=== PATIENT | female | born 1940 | race Caucasian/White ===

== ENCOUNTER 2019-07-22 17:05 | Observation (INO) | payer MEDICARE, OTHER, SELFPAY ==
[2019-07-22] VITALS (8 sets, daily range): BP systolic 154–170; BP diastolic 68–104; PULSE 69–80; RESP 15–21; TEMP 36.7–37; O2SAT 93–97; BMI 31.5
--- NOTE | 2019-07-22 17:18 | ED_ITS ---
Entered by Elle Rahman, acting as scribe for Emmanuel Villalta DO Documented by User: Emmanuel Villalta DO 07/26/19 07:03 HPI - Neuro Symptoms/Deficit General: Chief Complaint: Neuro Symptoms/Deficit Stated Complaint: stroke s/s Time Seen by Provider: 07/22/19 17:19 Source: patient and family Mode of arrival: wheelchair Limitations: no limitations History of Present Illness: HPI Narrative: 78 yo f came to the er with family for stoke like symptoms, onset was 1 hour ago. Family states that she has ms in her rt leg and that stays numb. Family states that pt was leaning to the right when she got there. Pt also was trying to eat and the food was coming out the right side of her mouth. Family reports a history of MS. by the time pt arrived in exam room symptoms have completely resolved. Onset (ago): hour(s) (1 hour ago) Time: 17:20 Last Observed Normal: 16:19 Timing confirmed by: family member Location: speech and right face Associated symptoms: Deny chest pain, headache(s), malaise, nausea, syncope, vertigo or vomiting Review of Systems Const: Reports: fatigue; Denies: fever, chills or malaise Eyes: Denies: change in vision or blurry vision ENMT: Denies: throat pain, oral sores/lesions, dental pain, nasal discharge or nasal congestion Card: Denies: chest pain or syncope Resp: Denies: shortness of breath, productive cough, non-productive cough or wheezing GI: Denies: nausea or vomiting : Denies: flank pain, painful urination, urinary frequency, urinary urgency, urinary incontinence or blood in urine Musc: Denies: neck pain, back pain, extremity pain, extremity swelling, joint pain or joint swelling Skin/Breast: Denies: rash, itching or redness Neuro: Reports: weakness in extremities, lack of coordination and difficulty walking; Denies: headache or vertigo Psych: Denies: anxiety, depression, loss of interest, visual hallucinations, auditory hallucinations, suicidal ideation or homicidal ideation Endo: Denies: excessive urination, excessive thirst, tired all the time or cold intolerance Alex/Lymph: Denies: easy bruising, easy bleeding, petechiae, enlarged lymph nodes or tender lymph nodes PFSH ED PFSH: Statuses (acute, chronic, etc) shown below reflect problem list status as previously entered and may not be historically accurate Medical History (Updated 07/24/19 @ 00:00 by ) Congestive heart failure (Acute) Coronary artery disease (Resolved) CABG x3 and 2006. No history of [place] with this. Diabetes mellitus type 2 in nonobese (Resolved) Hyperlipidemia (Resolved) Hypertension (Resolved) Hypothyroidism (acquired) (Resolved) Multiple sclerosis (Acute) Diagnosed since 1988. No treatment. Has chronic right leg numbness Social History (Updated 07/23/19 @ 06:49 by Hector Eller MD) Smoking and tobacco status: never smoked Alcohol intake: never Physical Exam Const: COMMON NORMALS: average body habitus, oriented x3 and alert GENERAL APPEARANCE: cooperative, comfortable, well kempt and well developed NUTRITIONAL APPEARANCE: obese ORIENTATION/CONSCIOUSNESS: Yes awake, Yes oriented to person and Yes oriented to place HENMT: COMMON NORMALS: normocephalic, head/scalp atraumatic, EAC's normal, TM's normal bilaterally, external nose normal, moist oral mucous membranes and oropharynx normal HEAD & SCALP: normocephalic and atraumatic NOSE: external nose normal EXTERNAL AUDITORY CANAL: EAC's normal TYMPANIC MEMBRANE: TM's normal bilaterally MOUTH: oral and palatal mucosa normal, lip normal and tongue normal THROAT: posterior oropharynx normal and tonsils normal Eye: COMMON NORMALS: PERRL, EOMs intact bilaterally, conjunctivae normal and no scleral icterus CONJUNCTIVA: Yes conjunctivae normal PUPIL: Yes PERRL Neck/C-Spine: COMMON NORMALS: full ROM, no lymphadenopathy, supple, no meningeal signs and thyroid normal THYROID: thyroid normal and asymmetrical Lymph: LYMPHATIC: no lymphadenopathy noted Resp: COMMON NORMALS: normal respiratory effort, no retractions, no use of accessory muscles and clear to auscultation bilaterally AUSCULTATION: clear to auscultation bilaterally Cardio: COMMON NORMALS: regular rate and regular rhythm RATE: regular rate RHYTHM: regular rhythm HEART SOUNDS: no murmurs GI: COMMON NORMALS: normal to inspection, nondistended, normoactive bowel sounds, soft to palpation and no hepatosplenomegaly PALPATION: Yes soft and Yes no hepatosplenomegaly : COMMON NORMALS: Yes no CVA tenderness BLADDER/KIDNEY EXAM: Yes no CVA tenderness Back/Pelvis: COMMON NORMALS: no CVA tenderness LUMBAR SPINE/LOWER BACK: Yes normal to inspection Extremity: COMMON NORMALS: no clubbing, cyanosis or edema, no calf tenderness and no pedal edema RIGHT UPPER EXTREMITY: Yes wrist (pt has brace on related to prev injury (fall)) Neuro: COMMON NORMALS: oriented x3 SENSORIUM/ORIENTATION: Yes alert, Yes oriented to person and Yes oriented to place MENINGEAL SIGNS: Yes no meningeal signs Psych: APPEARANCE: Yes well kempt Skin: COMMON NORMALS: no rashes or lesions noted and skin turgor normal GENERAL SKIN EXAM: no rashes or lesions noted and turgor normal Course ED course: inital care, orders and exam. NIH is 0. PT has hx of MS. Family description of events sounds like she did have a significnat TIA. [place] [facility] [place] Signs: Vital signs: Vital Signs Temperature 97.9 F 07/23/19 13:42 Pulse Rate 79 07/23/19 12:00 Respiratory Rate 16 07/23/19 13:42 Blood Pressure 167/81 07/23/19 12:00 Pulse Oximetry 95 07/23/19 13:42 MDM - Neuro Symptoms/Deficit Lab Data: Labs: Lab Results 07/22/19 07/22/19 07/22/19 Range/Units 17:59 18:05 18:05 WBC 10.5 H (4.0-10.0) 10^3/ uL RBC 4.64 (4.1-5.3) 10^6/u L Hgb 13.6 (11.5-15.3) g/dL Hct 42.2 (37.0-47.0) % MCV 90.9 (81-99) fL MCH 29.3 (28.0-34.0) pg MCHC 32.2 (30.0-36.0) g/dL RDW 12.8 (12.1-15.1) % Plt Count 281 (130-400) 10^3/c mm MPV 10.5 H (7.4-10.4) fL Neut % (Auto) 53.7 % Lymph % (Auto) 35.3 % Erath % (Auto) 7.7 % Eos % (Auto) 2.2 % Baso % (Auto) 0.8 % Neut # (Auto) 5.7 (1.8-7.7) 10^3/u L Lymph # (Auto) 3.7 (0.8-4.8) 10^3/u L Erath # (Auto) 0.8 (0.2-0.9) 10^3/u L Eos # (Auto) 0.2 (0.0-0.8) 10^3/u L Baso # (Auto) 0.1 (0.0-0.1) 10^3/u L Nucleated RBC % (a uto) 0 % Nucleated RBCs # 0.0 /100WBC PT 13.80 H (10.5-13.3) SECO NDS INR 1.03 (0.8-1.2) APTT 30.8 (23.9-36.7) SECO NDS Sodium (136-145) mmol/L Potassium (3.5-5.1) mmol/L Chloride (98-107) mmol/L Carbon Dioxide (22-29) mmol/L Anion Gap (5-19) BUN (8-23) mg/dL Creatinine (0.5-0.9) mg/dL Glucose (74-106) mg/dL POC Glucose 88 (70-110) mg/dL Calcium (8.8-10.2) mg/Dl Total Bilirubin (0.15-1.2) mg/dL AST (0-32) U/L ALT (0-33) U/L Alkaline Phosphata se (35-105) IU/L Total Protein (6.6-8.7) g/dL Albumin (3.5-5.2) g/dL Globulin (1.3-4.6) g/dL Lipase (13-60) U/L Urine Color (Yellow) Urine Appearance (CLEAR) Urine pH (5-7) Ur Specific Gravit y (1.005-1.030) Urine Protein (Negative) Urine Glucose (UA) (Normal) Urine Ketones (Negative) Urine Occult Blood (Negative) Urine Nitrate (Negative) Urine Bilirubin (NEGATIVE) Urine Urobilinogen (Negative) mg/dL Ur Leukocyte Kassi ase (Negative) Urine Opiates Scre en (Negative) ng/mL Ur Barbiturates Sc reen (Negative) ng/mL Ur Phencyclidine S crn (Negative) ng/mL Ur Amphetamines Sc reen (Negative) ng/mL U Benzodiazepines Scrn (Negative) ng/mL Urine Cocaine Scre en (Negative) ng/mL U Marijuana (THC) Screen (Negative) ng/mL 07/22/19 07/22/19 07/22/19 Range/Units 18:05 18:05 18:44 WBC (4.0-10.0) 10^3/ uL RBC (4.1-5.3) 10^6/u L Hgb (11.5-15.3) g/dL Hct (37.0-47.0) % MCV (81-99) fL MCH (28.0-34.0) pg MCHC (30.0-36.0) g/dL RDW (12.1-15.1) % Plt Count (130-400) 10^3/c mm MPV (7.4-10.4) fL Neut % (Auto) % Lymph % (Auto) % Erath % (Auto) % Eos % (Auto) % Baso % (Auto) % Neut # (Auto) (1.8-7.7) 10^3/u L Lymph # (Auto) (0.8-4.8) 10^3/u L Erath # (Auto) (0.2-0.9) 10^3/u L Eos # (Auto) (0.0-0.8) 10^3/u L Baso # (Auto) (0.0-0.1) 10^3/u L Nucleated RBC % (a uto) % Nucleated RBCs # /100WBC PT (10.5-13.3) SECO NDS INR (0.8-1.2) APTT (23.9-36.7) SECO NDS Sodium 140 (136-145) mmol/L Potassium 3.6 (3.5-5.1) mmol/L Chloride 103 (98-107) mmol/L Carbon Dioxide 22 (22-29) mmol/L Anion Gap 18.6 (5-19) BUN 18 (8-23) mg/dL Creatinine 1.0 H (0.5-0.9) mg/dL Glucose 93 (74-106) mg/dL POC Glucose (70-110) mg/dL Calcium 9.9 (8.8-10.2) mg/Dl Total Bilirubin 0.3 (0.15-1.2) mg/dL AST 21 (0-32) U/L ALT 15 (0-33) U/L Alkaline Phosphata se 87 (35-105) IU/L Total Protein 7.0 (6.6-8.7) g/dL Albumin 4.0 (3.5-5.2) g/dL Globulin 3.0 (1.3-4.6) g/dL Lipase 24 (13-60) U/L Urine Color Yellow (Yellow) Urine Appearance Clear (CLEAR) Urine pH 5 (5-7) Ur Specific Gravit y 1.010 (1.005-1.030) Urine Protein Neg (Negative) Urine Glucose (UA) Norm (Normal) Urine Ketones Negative (Negative) Urine Occult Blood Neg (Negative) Urine Nitrate Negative (Negative) Urine Bilirubin Neg (NEGATIVE) Urine Urobilinogen Norm (Negative) mg/dL Ur Leukocyte Kassi ase Negative (Negative) Urine Opiates Scre en (Negative) ng/mL Ur Barbiturates Sc reen (Negative) ng/mL Ur Phencyclidine S crn (Negative) ng/mL Ur Amphetamines Sc reen (Negative) ng/mL U Benzodiazepines Scrn (Negative) ng/mL Urine Cocaine Scre en (Negative) ng/mL U Marijuana (THC) Screen (Negative) ng/mL 07/22/19 Range/Units 18:44 WBC (4.0-10.0) 10^3/ uL RBC (4.1-5.3) 10^6/u L Hgb (11.5-15.3) g/dL Hct (37.0-47.0) % MCV (81-99) fL MCH (28.0-34.0) pg MCHC (30.0-36.0) g/dL RDW (12.1-15.1) % Plt Count (130-400) 10^3/c mm MPV (7.4-10.4) fL Neut % (Auto) % Lymph % (Auto) % Erath % (Auto) % Eos % (Auto) % Baso % (Auto) % Neut # (Auto) (1.8-7.7) 10^3/u L Lymph # (Auto) (0.8-4.8) 10^3/u L Erath # (Auto) (0.2-0.9) 10^3/u L Eos # (Auto) (0.0-0.8) 10^3/u L Baso # (Auto) (0.0-0.1) 10^3/u L Nucleated RBC % (a uto) % Nucleated RBCs # /100WBC PT (10.5-13.3) SECO NDS INR (0.8-1.2) APTT (23.9-36.7) SECO NDS Sodium (136-145) mmol/L Potassium (3.5-5.1) mmol/L Chloride (98-107) mmol/L Carbon Dioxide (22-29) mmol/L Anion Gap (5-19) BUN (8-23) mg/dL Creatinine (0.5-0.9) mg/dL Glucose (74-106) mg/dL POC Glucose (70-110) mg/dL Calcium (8.8-10.2) mg/Dl Total Bilirubin (0.15-1.2) mg/dL AST (0-32) U/L ALT (0-33) U/L Alkaline Phosphata se (35-105) IU/L Total Protein (6.6-8.7) g/dL Albumin (3.5-5.2) g/dL Globulin (1.3-4.6) g/dL Lipase (13-60) U/L Urine Color (Yellow) Urine Appearance (CLEAR) Urine pH (5-7) Ur Specific Gravit y (1.005-1.030) Urine Protein (Negative) Urine Glucose (UA) (Normal) Urine Ketones (Negative) Urine Occult Blood (Negative) Urine Nitrate (Negative) Urine Bilirubin (NEGATIVE) Urine Urobilinogen (Negative) mg/dL Ur Leukocyte Kassi ase (Negative) Urine Opiates Scre en Negative (Negative) ng/mL Ur Barbiturates Sc reen Negative (Negative) ng/mL Ur Phencyclidine S crn Negative (Negative) ng/mL Ur Amphetamines Sc reen Negative (Negative) ng/mL U Benzodiazepines Scrn Negative (Negative) ng/mL Urine Cocaine Scre en Negative (Negative) ng/mL U Marijuana (THC) Screen Negative (Negative) ng/mL Discharge Plan Discharge Patient Disposition: Admitted As Inpatient Admit Provider: Hector Eller Clinical Impression: Transient cerebral ischemia Condition: Stable Discharge Orders: Discharge Order (Routine); Ordered 07/23/19 Ordered By: Hector Eller Referrals: Hector Eller MD [Primary Care Provider] - 4-7 days (11:40 am Friday) Patient Instructions: Type 2 Diabetes, Atorvastatin (By mouth), Clopidogrel (By mouth), Hypertension, Hypothyroidism (DC), Hyperlipidemia (DC) Additional Instructions: -Continue all of your home medications the same. We are going to add Plavix 75 mg once a day to your regimen. We are also changing your simvastatin to a atorvastatin. -Call if you have any strokelike symptoms. Follow-up with Dr. 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, pt has brace on for other recent injury (fall)) Motor Arm Left - 5: No Drift Motor Leg Right - 6: No Drift Motor Leg Left - 6: No Drift Limb Ataxia - 7: Absent Sensory - 8: Normal Best Language - 9: No Aphasia Dysarthia - 10: Normal Extinction And Inattention - 11: 0 Score Total Score: 0 Documented by User: Ana Sánchez MD 07/22/19 20:44 HPI - Neuro Symptoms/Deficit General: Chief Complaint: Neuro Symptoms/Deficit Stated Complaint: stroke s/s Time Seen by Provider: 07/22/19 17:19 PFSH ED PFSH: Statuses (acute, chronic, etc) shown below reflect problem list status as previously entered and may not be historically accurate Medical History (Updated 01/11/20 @ 00:00 by ) Congestive heart failure (Acute) Coronary artery disease (Resolved) CABG x3 and 2006. No history of [place] with this. Diabetes mellitus type 2 in nonobese (Resolved) Hyperlipidemia (Resolved) Hypertension (Resolved) Hypothyroidism (acquired) (Resolved) Multiple sclerosis (Acute) Diagnosed since 1988. No treatment. Has chronic right leg numbness Social History (Updated 07/23/19 @ 06:49 by Hector Eller MD) Smoking and tobacco status: never smoked Alcohol intake: never Course Vital Signs: Vital signs: Vital Signs Temperature 97.9 F 07/23/19 13:42 Pulse Rate 79 07/23/19 12:00 Respiratory Rate 16 07/23/19 13:42 Blood Pressure 167/81 07/23/19 12:00 Pulse Oximetry 95 07/23/19 13:42 MDM - Neuro Symptoms/Deficit MDM Narrative: Medical decision making narrative: Patient presents here with TIA like symptoms that is since resolved. I took patient over from Dr. Villalta. Patient's CT here was negative. I spoke to patient's physician Dr. Eller and will admit for observation for her TIA. Lab Data: Labs: Lab Results 07/22/19 07/22/19 07/22/19 Range/Units 17:59 18:05 18:05 WBC 10.5 H (4.0-10.0) 10^3/ uL RBC 4.64 (4.1-5.3) 10^6/u L Hgb 13.6 (11.5-15.3) g/dL Hct 42.2 (37.0-47.0) % MCV 90.9 (81-99) fL MCH 29.3 (28.0-34.0) pg MCHC 32.2 (30.0-36.0) g/dL RDW 12.8 (12.1-15.1) % Plt Count 281 (130-400) 10^3/c mm MPV 10.5 H (7.4-10.4) fL Neut % (Auto) 53.7 % Lymph % (Auto) 35.3 % Erath % (Auto) 7.7 % Eos % (Auto) 2.2 % Baso % (Auto) 0.8 % Neut # (Auto) 5.7 (1.8-7.7) 10^3/u L Lymph # (Auto) 3.7 (0.8-4.8) 10^3/u L Erath # (Auto) 0.8 (0.2-0.9) 10^3/u L Eos # (Auto) 0.2 (0.0-0.8) 10^3/u L Baso # (Auto) 0.1 (0.0-0.1) 10^3/u L Nucleated RBC % (a uto) 0 % Nucleated RBCs # 0.0 /100WBC PT 13.80 H (10.5-13.3) SECO NDS INR 1.03 (0.8-1.2) APTT 30.8 (23.9-36.7) SECO NDS Sodium (136-145) mmol/L Potassium (3.5-5.1) mmol/L Chloride (98-107) mmol/L Carbon Dioxide (22-29) mmol/L Anion Gap (5-19) BUN (8-23) mg/dL Creatinine (0.5-0.9) mg/dL Glucose (74-106) mg/dL POC Glucose 88 (70-110) mg/dL Calcium (8.8-10.2) mg/Dl Total Bilirubin (0.15-1.2) mg/dL AST (0-32) U/L ALT (0-33) U/L Alkaline Phosphata se (35-105) IU/L Total Protein (6.6-8.7) g/dL Albumin (3.5-5.2) g/dL Globulin (1.3-4.6) g/dL Lipase (13-60) U/L Urine Color (Yellow) Urine Appearance (CLEAR) Urine pH (5-7) Ur Specific Gravit y (1.005-1.030) Urine Protein (Negative) Urine Glucose (UA) (Normal) Urine Ketones (Negative) Urine Occult Blood (Negative) Urine Nitrate (Negative) Urine Bilirubin (NEGATIVE) Urine Urobilinogen (Negative) mg/dL Ur Leukocyte Kassi ase (Negative) Urine Opiates Scre en (Negative) ng/mL Ur Barbiturates Sc reen (Negative) ng/mL Ur Phencyclidine S crn (Negative) ng/mL Ur Amphetamines Sc reen (Negative) ng/mL U Benzodiazepines Scrn (Negative) ng/mL Urine Cocaine Scre en (Negative) ng/mL U Marijuana (THC) Screen (Negative) ng/mL 07/22/19 07/22/19 07/22/19 Range/Units 18:05 18:05 18:44 WBC (4.0-10.0) 10^3/ uL RBC (4.1-5.3) 10^6/u L Hgb (11.5-15.3) g/dL Hct (37.0-47.0) % MCV (81-99) fL MCH (28.0-34.0) pg MCHC (30.0-36.0) g/dL RDW (12.1-15.1) % Plt Count (130-400) 10^3/c mm MPV (7.4-10.4) fL Neut % (Auto) % Lymph % (Auto) % Erath % (Auto) % Eos % (Auto) % Baso % (Auto) % Neut # (Auto) (1.8-7.7) 10^3/u L Lymph # (Auto) (0.8-4.8) 10^3/u L Erath # (Auto) (0.2-0.9) 10^3/u L Eos # (Auto) (0.0-0.8) 10^3/u L Baso # (Auto) (0.0-0.1) 10^3/u L Nucleated RBC % (a uto) % Nucleated RBCs # /100WBC PT (10.5-13.3) SECO NDS INR (0.8-1.2) APTT (23.9-36.7) SECO NDS Sodium 140 (136-145) mmol/L Potassium 3.6 (3.5-5.1) mmol/L Chloride 103 (98-107) mmol/L Carbon Dioxide 22 (22-29) mmol/L Anion Gap 18.6 (5-19) BUN 18 (8-23) mg/dL Creatinine 1.0 H (0.5-0.9) mg/dL Glucose 93 (74-106) mg/dL POC Glucose (70-110) mg/dL Calcium 9.9 (8.8-10.2) mg/Dl Total Bilirubin 0.3 (0.15-1.2) mg/dL AST 21 (0-32) U/L ALT 15 (0-33) U/L Alkaline Phosphata se 87 (35-105) IU/L Total Protein 7.0 (6.6-8.7) g/dL Albumin 4.0 (3.5-5.2) g/dL Globulin 3.0 (1.3-4.6) g/dL Lipase 24 (13-60) U/L Urine Color Yellow (Yellow) Urine Appearance Clear (CLEAR) Urine pH 5 (5-7) Ur Specific Gravit y 1.010 (1.005-1.030) Urine Protein Neg (Negative) Urine Glucose (UA) Norm (Normal) Urine Ketones Negative (Negative) Urine Occult Blood Neg (Negative) Urine Nitrate Negative (Negative) Urine Bilirubin Neg (NEGATIVE) Urine Urobilinogen Norm (Negative) mg/dL Ur Leukocyte Kassi ase Negative (Negative) Urine Opiates Scre en (Negative) ng/mL Ur Barbiturates Sc reen (Negative) ng/mL Ur Phencyclidine S crn (Negative) ng/mL Ur Amphetamines Sc reen (Negative) ng/mL U Benzodiazepines Scrn (Negative) ng/mL Urine Cocaine Scre en (Negative) ng/mL U Marijuana (THC) Screen (Negative) ng/mL 07/22/19 Range/Units 18:44 WBC (4.0-10.0) 10^3/ uL RBC (4.1-5.3) 10^6/u L Hgb (11.5-15.3) g/dL Hct (37.0-47.0) % MCV (81-99) fL MCH (28.0-34.0) pg MCHC (30.0-36.0) g/dL RDW (12.1-15.1) % Plt Count (130-400) 10^3/c mm MPV (7.4-10.4) fL Neut % (Auto) % Lymph % (Auto) % Erath % (Auto) % Eos % (Auto) % Baso % (Auto) % Neut # (Auto) (1.8-7.7) 10^3/u L Lymph # (Auto) (0.8-4.8) 10^3/u L Erath # (Auto) (0.2-0.9) 10^3/u L Eos # (Auto) (0.0-0.8) 10^3/u L Baso # (Auto) (0.0-0.1) 10^3/u L Nucleated RBC % (a uto) % Nucleated RBCs # /100WBC PT (10.5-13.3) SECO NDS INR (0.8-1.2) APTT (23.9-36.7) SECO NDS Sodium (136-145) mmol/L Potassium (3.5-5.1) mmol/L Chloride (98-107) mmol/L Carbon Dioxide (22-29) mmol/L Anion Gap (5-19) BUN (8-23) mg/dL Creatinine (0.5-0.9) mg/dL Glucose (74-106) mg/dL POC Glucose (70-110) mg/dL Calcium (8.8-10.2) mg/Dl Total Bilirubin (0.15-1.2) mg/dL AST (0-32) U/L ALT (0-33) U/L Alkaline Phosphata se (35-105) IU/L Total Protein (6.6-8.7) g/dL Albumin (3.5-5.2) g/dL Globulin (1.3-4.6) g/dL Lipase (13-60) U/L Urine Color (Yellow) Urine Appearance (CLEAR) Urine pH (5-7) Ur Specific Gravit y (1.005-1.030) Urine Protein (Negative) Urine Glucose (UA) (Normal) Urine Ketones (Negative) Urine Occult Blood (Negative) Urine Nitrate (Negative) Urine Bilirubin (NEGATIVE) Urine Urobilinogen (Negative) mg/dL Ur Leukocyte Kassi ase (Negative) Urine Opiates Scre en Negative (Negative) ng/mL Ur Barbiturates Sc reen Negative (Negative) ng/mL Ur Phencyclidine S crn Negative (Negative) ng/mL Ur Amphetamines Sc reen Negative (Negative) ng/mL U Benzodiazepines Scrn Negative (Negative) ng/mL Urine Cocaine Scre en Negative (Negative) ng/mL U Marijuana (THC) Screen Negative (Negative) ng/mL Imaging Data^: CT Head: Radiologist's impression: Ordering Physician: Emmanuel Villalta DO Date of Service: 07/22/19 Procedure(s): CT head wo con* [id number] Accession Number(s): [id number] cc: Emmanuel Villalta DO PROCEDURE INFORMATION: Exam: CT Head Without Contrast Exam date and time: 07/22/2019 5:21 PM Age: 78 years old Clinical indication: Dizziness and speech disturbance and weakness, extremity; Right; Slurred speech; Additional info: Symptoms of acute stroke TECHNIQUE: Imaging protocol: Computed tomography of the head without contrast. Total DLP: 776.34 mGy-cm Radiation optimization: All CT scans at this facility use at least one of these dose optimization techniques: automated exposure control; mA and/or kV adjustment per patient size (includes targeted exams where dose is matched to clinical indication); or iterative reconstruction. Other technique: STROKE PROTOCOL was implemented. COMPARISON: CT head wo con* [id number] 12/11/2018 2:01 AM FINDINGS: Brain: There is moderate cortical atrophy. Low-density changes are present in the periventricular white matter in keeping nonspecific small vessel chronic ischemic change. There is no intracranial mass or hemorrhage. Midline shift: There is no shift of midline structures. Ventricles: Normal. No ventriculomegaly. Bones/joints: Unremarkable. No acute fracture. Sinuses: There is some fluid in the right maxillary antrum consistent with some maxillary sinus disease. This is not fully evaluated. Mastoid air cells: Visualized mastoid air cells are well aerated. Soft tissues: Unremarkable. Other findings: Findings are not changed from 12/11/2018. CT/CT head wo con* [id number] IMPRESSION: Atrophy and chronic ischemic changes. No acute intracranial finding. EKG Data^: EKG 1: Attestation: I personally reviewed and interpreted this EKG as follows: EKG interpretation date: 07/22/19 EKG interpretation time: 18:37 Interpretation: nsr hr [address] or t wave abnormalities Discharge Plan Discharge Patient Disposition: Admitted As Inpatient Admit Provider: Hector Eller Clinical Impression: Transient cerebral ischemia Condition: Stable Discharge Orders: Discharge Order (Routine); Ordered 07/23/19 Ordered By: Hector Eller Referrals: Hector Eller MD [Primary Care Provider] - 4-7 days (11:40 am Friday) Patient Instructions: Type 2 Diabetes, Atorvastatin (By mouth), Clopidogrel (By mouth), Hypertension, Hypothyroidism (DC), Hyperlipidemia (DC) Additional Instructions: -Continue all of your home medications the same. We are going to add Plavix 75 mg once a day to your regimen. We are also changing your simvastatin to a atorvastatin. -Call if you have any strokelike symptoms. Follow-up with Dr. Eller middle part of next week.- Discharge Date/Time: 07/22/19 22:00 Coding Level of Care Code ED Hydrology Technician for Chg Fwd Exam Problem Focused The documentation recorded by the Josiah arroyo Stephanie Lyn, accurately reflects the service I personally performed and the decisions made by me, Emmanuel Villalta, DO
[2019-07-22 18:06] LABS: Glucose Point of Care 88 mg/dL (70-110)
[2019-07-22] MEDS: sodium chloride 0.9% 500 ML 999 ML IV (18:07)
[2019-07-22 18:13] LABS: Basophils # 0.1 10^3/uL (0.0-0.1); Basophils % 0.8 %; Eosinophils # 0.2 10^3/uL (0.0-0.8); Eosinophils % 2.2 %; Hematocrit 42.2 % (37.0-47.0); Hemoglobin 13.6 g/dL (11.5-15.3); Lymphocytes # 3.7 10^3/uL (0.8-4.8); Lymphocytes % 35.3 %; Mean Corpuscular HGB Conc 32.2 g/dL (30.0-36.0); Mean Corpuscular Hemoglobin 29.3 pg (28.0-34.0); Mean Corpuscular Volume 90.9 fL (81-99); Mean Platelet Volume 10.5 fL (7.4-10.4); Monocytes # 0.8 10^3/uL (0.2-0.9); Monocytes % 7.7 %; Neutrophils # 5.7 10^3/uL (1.8-7.7); Neutrophils % 53.7 %; Nucleated Red Blood Cells % 0 %; Platelet Count 281 10^3/cmm (130-400); Red Blood Count 4.64 10^6/uL (4.1-5.3); Red Cell Distribution Width 12.8 % (12.1-15.1); White Blood Count 10.5 10^3/uL (4.0-10.0)
[2019-07-22 18:27] LABS: Partial Thromboplastin Time 30.8 SECONDS (23.9-36.7)
[2019-07-22 18:28] LABS: Alanine Aminotransferase 15 U/L (0-33); Alkaline Phosphatase 87 IU/L (35-105); Anion Gap 18.6 (5-19); Aspartate Amino Transferase 21 U/L (0-32); Blood Urea Nitrogen 18 mg/dL (8-23); Calcium 9.9 mg/Dl (8.8-10.2); Carbon Dioxide 22 mmol/L (22-29); Chloride 103 mmol/L (98-107); Glucose 93 mg/dL (74-106); Potassium 3.6 mmol/L (3.5-5.1); Sodium 140 mmol/L (136-145); Total Bilirubin 0.3 mg/dL (0.15-1.2)
[2019-07-22 18:43] LABS: INR 1.03 (0.8-1.2)
[2019-07-22 18:50] LABS: Add Urine Microscopic? NO
[2019-07-22 19:11] LABS: Urine Appearance Clear (CLEAR); Urine Color Yellow (Yellow); pH Urine 5 (5-7)
[2019-07-22 19:12] LABS: Bilirubin Urine Neg (NEGATIVE); Blood Urine Neg (Negative); Glucose Urine UA Norm (Normal); Ketones Urine Negative (Negative); Leukocyte Esterase Urine Negative (Negative); Nitrate Urine Negative (Negative); Protein Urine Neg (Negative); Urobilinogen Urine Norm (Negative)
[2019-07-22 19:22] LABS: Lipase 24 U/L (13-60)
[2019-07-22 19:23] LABS: Amphetamines Screen Urine Negative (Negative); Barbiturates Screen Urine Negative (Negative); Benzodiazepines Screen Urine Negative (Negative); Cocaine Screen Urine Negative (Negative); Opiate Screen Urine Negative (Negative); PCP Screen Urine Negative (Negative); THC Screen Urine Negative (Negative)
--- NOTE | 2019-07-22 19:25 | PC.NURSE ---
Rounding on patient. Patient resting in bed. No distress noted. Daughter at patients bedside. Patients daughter reports that the patient is hungry. Per physician patient is able to eat. This RN obtained a drink and sandwich for patient. Swallow study performed prior to allowing patient to eat. Patient had no difficulty at this time. Will continue to monitor patient.
[2019-07-22 22:39] LABS: Glucose Point of Care 160 mg/dL (70-110)
[2019-07-23] MEDS: carvedilol 25 mg Tablet PO ×2 (00:30→09:03)
[2019-07-23 06:00] VITALS: BP 167/68; RESP 18; TEMP 37; O2SAT 93
--- NOTE | 2019-07-23 06:43 | USCV_ITS ---
Pallavi Aguirre Age: 78 Gender: F : 1940 Exam Date: 07/23/2019 07:17 Ordering Phys: Hector Eller MD Technologist: Prem Singleton Exam Location: [facility] [place] Indication: TIA Risk Factors: Previous Vascular Surgery: Right Brachial BP: / Left Brachial BP: / Right Left Velocity (cm/s) Spectral Plaque Velocity (cm/s) Spectral Plaque Syst/Diast Broadening Syst/Diast Broadening 58.70/ 15.20 Prox CCA 57.70 / 15.20 58.70/ 14.20 Mid CCA 76.90 / 14.20 77.90/ 8.10 Hetro Distal CCA 87.80 / 12.50 Hetro 65.80/ 12.10 Hetro Prox ICA 58.20 / 13.40 Hetro 72.90/ 9.10 Mid ICA 53.70 / 9.00 91.10/ 25.30 Distal ICA 83.30 / 18.80 75.90 ECA 105.70 1.17 ICA/CCA 0.95 Antegrade Vertebral Antegrade 35.40/ 7.10 cm/s 45.70/ 17.00 cm/s Bi Subclavian Bi 134.6 116.4 0 0 FINDINGS Moderated heterogeneous plaques bilaterally at the bifurcations and distal common carotid arteries Intimal thickening in the common carotid arteries bilaterally Antegrade flow in the vertebral arteries bilaterally Normal Doppler follows decent external carotid arteries bilaterally CONCLUSIONS Moderated heterogeneous plaques bilaterally at the bifurcations and distal common carotid arteries with velocity elevation, suggestive of 16- 49% stenosis. Intimal thickening in the common carotid arteries bilaterally. No previous studies are available for comparison. Dr Catarino Alan MD [facility] (Electronically Signed) Final Date: 23 July 2019 19:42 S
--- NOTE | 2019-07-23 06:43 | USCV_ITS ---
Pallavi Aguirre Age: 78 Gender: F : 1940 Exam Date: 07/23/2019 07:04 Ordering Phys: Hector Eller MD Technologist: Prem Singleton Exam Location: [facility] [place] Indication: TIA BP: 132 / 80 HR: 69 Rhythm: Sinus Technical Quality: Suboptimal MEASUREMENTS (Male / Female) Normal Values 2D ECHO LV Diastolic Diameter PLAX 4.2 cm 4.2 - 5.9 / 3.9 - 5.3 cm LV Systolic Diameter PLAX 2.6 cm IVS Diastolic Thickness 0.9 cm 0.6 - 1.0 / 0.6 - 0.9 cm IVS Systolic Thickness 1.1 cm LVPW Diastolic Thickness 1.1 cm 0.6 - 1.0 / 0.6 - 0.9 cm LVPW Systolic Thickness 1.3 cm LVOT Diameter 2.0 cm LV Ejection Fraction 2D Teich 66.6 % LV Ejection Fraction MOD 2C 51.8 % LV Ejection Fraction 2C AL 53.0 % LA Diameter 3.7 cm LA Width 4.0 cm LA Height 4.4 cm RA Width 3.4 cm RA Height 4.2 cm M-MODE LV Diastolic Diameter MM 4.8 cm 4.2 - 5.9 / 3.9 - 5.3 cm LV Systolic Diameter MM 3.3 cm LV Ejection Fraction MM Teich 60.0 % IVS Diastolic Thickness MM 1.2 cm 0.6 - 1.0 / 0.6 - 0.9 cm IVS Systolic Thickness MM 1.1 cm LVPW Diastolic Thickness MM 1.2 cm 0.6 - 1.0 / 0.6 - 0.9 cm LVPW Systolic Thickness MM 1.9 cm RV Diastolic Diameter MM 1.0 cm Aortic Annulus Diameter 3.0 cm LA Ao Ratio MM 1.3 MV E Point Septal Separation 1.3 cm DOPPLER AV Peak Velocity 147.0 cm/s LVOT Peak Velocity 95.0 cm/s AV Area Cont Eq vti 2.0 cm squared AV Area Cont Eq pk 2.1 cm squared MV Area PHT 5.0 cm squared Mitral E to A Ratio 0.8 MV E' Velocity 10.0 cm/s Mitral E to MV E' Ratio 9.7 Mitral E to LV E' Lateral Ratio 7.3 Mitral E to LV E' Septal Ratio 14.4 TR Peak Velocity 269.0 cm/s TR Peak Gradient 29.0 mmHg TV Peak E Velocity 117.0 cm/s Right Atrial Pressure 4.0 mmHg Pulmonary Artery Systolic Pressu 32.9 mmHg FINDINGS Left Ventricle Possibly normal LV size and ejection fraction. Segmental wall motion analysis difficult because of the poor ultrasonic window. No gross abnormalities noted. Right Ventricle Possibly of normal size Right Atrium Possibly of normal size Left Atrium Mildly increased left atrial size. Mitral Valve Thickened mitral valve. Aortic Valve Thickened aortic valve. Tricuspid Valve [id number] tricuspid valve regurgitation. Pulmonic Valve Pulmonic valve not well visualized. Pericardium No pericardial effusion. Aorta Normal aortic annulus size. CONCLUSIONS Possibly normal LV size and ejection fraction. Segmental wall motion analysis difficult because of the poor ultrasonic window. No gross abnormalities noted. Minimally thickened aortic and mitral valves. Mild left atrial enlargement. No significant pericardial effusion. The study could not evaluate for intracardiac masses. No obvious masses noted Technically difficult study because of the poor ultrasonic window. Dr Catarino Alan MD FACC (Electronically Signed) Final Date: 23 July 2019 19:48 S
--- NOTE | 2019-07-23 06:45 | P.HP_ITS ---
Providers/Chief Complaint Admitting Physician: Hector Eller MD Primary Care Provider: Hector Eller MD Chief Complaint: stroke s/s History of Present Illness Pallavi Aguirre is a 78 year old female who presented to the ER last night for what is presumed to be a TIA. She had no chest pain or shortness of breath. She had an episode that lasted about an hour and a half of right sided weakness involving her arm and her leg. She had some facial droop apparently according to her daughter. And slurred speech. She had an episode of this a few weeks ago which resulted in a fall and fractured her right arm. She did not realize that that was what was going on at that time. She has not had any history of CVAs in the past. But does have a history of coronary disease. Her symptoms resolved prior to getting to the ER. She is feeling fine at this time as well. Past medical history Diabetes mellitus type 2, hypertension, hyperlipidemia, hypothyroidism, congestive heart failure, coronary artery disease with an MO in 2005. MS diagnosed in 1988. She has not had treatment for this. She has had some chronic right leg numbness. Past surgical history Appendix, gallbladder, CABG in 2005?3. Precancerous thyroid nodules removed in 1989. Total abdominal hysterectomy and BSO for ovarian tumor 1983 Family history Noncontributory Social history Retired from working at [employer]. She goes by Pallavi. She lives with her currently. No history of smoking and no alcohol use Review of Systems Narrative: General: No chronic fevers or chronic weight changes. HEENT: No acute changes in vision. No acute hearing loss. No new difficulty swallowing. Heart: No new chest pain or recent issues with coronary disease. Lungs: No history of TB. No chronic lung disease. GI: No history of GI bleeding. No hepatitis. No chronic nausea or vomitting. Renal: No dysuria or frequency. No hematuria Neuro: No acute neurological changes or deficits. Musculoskeletal: No acutely worsening joint pain or swelling. Medications/Allergies Home Medications Medication Instructions Recorded Confirmed Last Taken Type aspirin 81 mg PO DAILY 07/22/19 07/22/19 07/22/19 History carvedilol 25 mg PO BID 07/22/19 07/22/19 07/22/19 08:00 History furosemide 20 mg PO DAILY 07/22/19 07/22/19 07/22/19 History insulin glargine [Lantus U-100 10 unit SUBCUT BEDTIME 07/22/19 07/22/19 07/21/19 History Insulin] levothyroxine 88 mcg PO DAILY 07/22/19 07/22/19 07/22/19 History metformin 1,000 mg PO BID 07/22/19 07/22/19 07/22/19 08:00 History nitroglycerin 0.4 mg SUBLINGUAL Q5M PRN 07/22/19 07/22/19 Unknown History simvastatin mg PO DAILY 07/22/19 07/22/19 History Allergies Allergy/AdvReac Type Severity Reaction Status Date / Time codeine Allergy ALGY-Anaphy Verified 07/22/19 17:23 laxis PFSH Acute 2 PFSH: Statuses (acute, chronic, etc) shown below reflect problem list status as previously entered and may not be historically accurate Medical History (Updated 07/23/19 @ 06:54 by Hector Eller MD) Congestive heart failure (Acute) Coronary artery disease (Acute) CABG x3 and 2006. No history of [place] with this. Diabetes mellitus type 2 in nonobese (Acute) Hyperlipidemia (Acute) Hypertension (Acute) Hypothyroidism (acquired) (Acute) Multiple sclerosis (Acute) Diagnosed since 1988. No treatment. Has chronic right leg numbness Social History (Updated 07/23/19 @ 06:49 by Hector Eller MD) Smoking and tobacco status: never smoked Alcohol intake: never Vitals/I&O/Wt Last Vital Signs Temp 98.6 F 07/23/19 06:00 Pulse 73 07/22/19 23:30 Resp 18 07/23/19 06:00 BP 167/68 07/23/19 06:00 Pulse Ox 93 07/23/19 06:00 Weight last 48 hrs Weight 80.739 kg Physical Exam Narrative: EXAM NARRATIVE: General: No acute distress, Alert. Well nourished. HEENT: PERRLA, EOMI. vision grossly normal. Throat clear. Neck: supple, no adenopathy. Heart: Regular rate and rhythm. No murmurs, rubs or gallops. Normal capillary refill. Lungs: Clear to auscultation. No wheezes, rhonchi or rales. Abdomen: Positive bowel sounds. Non-tender, non-distended. No hepatosplenomegaly. No gaurding. Extremities: No clubbing, cyanosis, or edema. Negative Felicia's. Neurologic: cranial nerves II through XII intact. Normal sensation and strength in all extremities with the exception of the right lower leg which has chronically abnormal sensation A&P Assessment and plan (1) Transient cerebral ischemia: Suspect she had a TIA. Symptoms are resolved at this point. We will go ahead and get an echocardiogram and carotid artery ultrasound. We will start her on Plavix in addition to her baby aspirin. We will also change her statin over to atorvastatin. Most likely she will be discharged later today after the results of these come back. Status: Acute Qualifiers: Transient cerebral ischemia type: unspecified Qualified Code(s): G45.9 - Transient cerebral ischemic attack, unspecified Code(s): G45.9 - Transient cerebral ischemic attack, unspecified (2) Coronary artery disease: Stable Status: Acute Code(s): I25.10 - Atherosclerotic heart disease of [place] coronary artery without angina pectoris (3) Multiple sclerosis: Status: Acute Code(s): G35 - Multiple sclerosis (4) Diabetes mellitus type 2 in nonobese: Stable Status: Acute Code(s): E11.9 - Type 2 diabetes mellitus without complications (5) Hypertension: Stable Status: Acute Code(s): I10 - Essential (primary) hypertension (6) Hyperlipidemia: Stable Status: Acute Code(s): E78.5 - Hyperlipidemia, unspecified (7) Hypothyroidism (acquired): Status: Acute Code(s): E03.9 - Hypothyroidism, unspecified Attestations Medical Necessity Statement*: Patient currently in his observation anticipate later discharged today. Coding Level of Care Code Acute Data Review Specialist for g Fwd Diagnoses Transient cerebral ischemia G45.9 Transient cerebral ischemia type: unspecified Coronary artery disease I25.10 Multiple sclerosis G35 Diabetes mellitus type 2 in nonobese E11.9 Hypertension I10 Hyperlipidemia E78.5 Hypothyroidism (acquired) E03.9
[2019-07-23 07:43] VITALS: BP 147/72; PULSE 77; RESP 18; TEMP 36.6; O2SAT 95
[2019-07-23] MEDS: metformin 500 mg Tablet 1000 MG PO (09:02)
[2019-07-23] MEDS: FUROsemide 20 mg Tablet PO (09:02)
[2019-07-23] MEDS: aspirin 81 mg EC Tablet PO (09:02)
[2019-07-23] MEDS: levothyroxine 88 mcg Tablet PO (09:02)
[2019-07-23] MEDS: clopidogrel 75 mg Tablet PO (09:03)
[2019-07-23 12:00] VITALS: BP 167/81; PULSE 79; RESP 16; TEMP 36.6; O2SAT 95
[2019-07-23 12:15] LABS: Glucose Point of Care 138 mg/dL (70-110)
--- NOTE | 2019-07-23 12:56 | PM.DCS ---
Discharge Providers Date of Admission: 07/22/19 20:13 Date of Discharge: 07/23/19 Attending Provider at Admission: Hector Eller MD Attending Provider at Discharge: Hector Eller MD Primary Care Provider: Hector Eller MD Diagnoses at Discharge Discharge Diagnosis (1) Transient cerebral ischemia: Status: Acute Qualifiers: Transient cerebral ischemia type: unspecified Qualified Code(s): G45.9 - Transient cerebral ischemic attack, unspecified (2) Coronary artery disease: Status: Acute Problem details: CABG x3 and 2006. No history of [place] with this. (3) Multiple sclerosis: Status: Acute Problem details: Diagnosed since 1988. No treatment. Has chronic right leg numbness (4) Diabetes mellitus type 2 in nonobese: Status: Acute (5) Hypertension: Status: Acute (6) Hyperlipidemia: Status: Acute (7) Hypothyroidism (acquired): Status: Acute Reason for Visit Reason for Visit: Reason For Visit: stroke s/s Hospital Course Hospital Course: Patient is admitted for a TIA. Symptoms resolved prior to get to the ER. She done well overnight. Echocardiogram and carotids are pending at this time. These will be followed up on in the clinic. Discharge Data Data Completed and Pending: Completed Studies During Hospitalization Category Date Time Status CT head wo con* [id number] Stat Cat Scan 07/22/19 17:19 Completed Pending at discharge Category Date Time Status CV carotid duplex BI* [id number] Routine Ultrasound 07/23/19 06:43 Taken CV echo complete* [id number] Routine Ultrasound 07/23/19 06:43 Taken Labs from last 24 hours 07/23/19 07/22/19 07/22/19 11:58 22:35 18:44 WBC RBC Hgb Hct MCV MCH MCHC RDW Plt Count MPV Neut % (Auto) Lymph % (Auto) Stanley % (Auto) Eos % (Auto) Baso % (Auto) Neut # (Auto) Lymph # (Auto) Stanley # (Auto) Eos # (Auto) Baso # (Auto) Nucleated RBC % (a uto) Nucleated RBCs # PT INR APTT Sodium Potassium Chloride Carbon Dioxide Anion Gap BUN Creatinine Glucose POC Glucose 138 160 Calcium Total Bilirubin AST ALT Alkaline Phosphata se Total Protein Albumin Globulin Lipase Urine Color Urine Appearance Urine pH Ur Specific Gravit y Urine Protein Urine Glucose (UA) Urine Ketones Urine Occult Blood Urine Nitrate Urine Bilirubin Urine Urobilinogen Ur Leukocyte Kassi ase Urine Opiates Scre en Negative Ur Barbiturates Sc reen Negative Ur Phencyclidine S crn Negative Ur Amphetamines Sc reen Negative U Benzodiazepines Scrn Negative Urine Cocaine Scre en Negative U Marijuana (THC) Screen Negative 07/22/19 07/22/19 07/22/19 18:44 18:05 18:05 WBC RBC Hgb Hct MCV MCH MCHC RDW Plt Count MPV Neut % (Auto) Lymph % (Auto) Stanley % (Auto) Eos % (Auto) Baso % (Auto) Neut # (Auto) Lymph # (Auto) Stanley # (Auto) Eos # (Auto) Baso # (Auto) Nucleated RBC % (a uto) Nucleated RBCs # PT INR APTT Sodium 140 Potassium 3.6 Chloride 103 Carbon Dioxide 22 Anion Gap 18.6 BUN 18 Creatinine 1.0 H Glucose 93 POC Glucose Calcium 9.9 Total Bilirubin 0.3 AST 21 ALT 15 Alkaline Phosphata se 87 Total Protein 7.0 Albumin 4.0 Globulin 3.0 Lipase 24 Urine Color Yellow Urine Appearance Clear Urine pH 5 Ur Specific Gravit y 1.010 Urine Protein Neg Urine Glucose (UA) Norm Urine Ketones Negative Urine Occult Blood Neg Urine Nitrate Negative Urine Bilirubin Neg Urine Urobilinogen Norm Ur Leukocyte Kassi ase Negative Urine Opiates Scre en Ur Barbiturates Sc reen Ur Phencyclidine S crn Ur Amphetamines Sc reen U Benzodiazepines Scrn Urine Cocaine Scre en U Marijuana (THC) Screen 07/22/19 07/22/19 07/22/19 18:05 18:05 17:59 WBC 10.5 H RBC 4.64 Hgb 13.6 Hct 42.2 MCV 90.9 MCH 29.3 MCHC 32.2 RDW 12.8 Plt Count 281 MPV 10.5 H Neut % (Auto) 53.7 Lymph % (Auto) 35.3 Stanley % (Auto) 7.7 Eos % (Auto) 2.2 Baso % (Auto) 0.8 Neut # (Auto) 5.7 Lymph # (Auto) 3.7 Stanley # (Auto) 0.8 Eos # (Auto) 0.2 Baso # (Auto) 0.1 Nucleated RBC % (a uto) 0 Nucleated RBCs # 0.0 PT 13.80 H INR 1.03 APTT 30.8 Sodium Potassium Chloride Carbon Dioxide Anion Gap BUN Creatinine Glucose POC Glucose 88 Calcium Total Bilirubin AST ALT Alkaline Phosphata se Total Protein Albumin Globulin Lipase Urine Color Urine Appearance Urine pH Ur Specific Gravit y Urine Protein Urine Glucose (UA) Urine Ketones Urine Occult Blood Urine Nitrate Urine Bilirubin Urine Urobilinogen Ur Leukocyte Kassi ase Urine Opiates Scre en Ur Barbiturates Sc reen Ur Phencyclidine S crn Ur Amphetamines Sc reen U Benzodiazepines Scrn Urine Cocaine Scre en U Marijuana (THC) Screen Vitals: Last Vital Signs Temp 97.9 F 07/23/19 12:00 Pulse 79 07/23/19 12:00 Resp 16 07/23/19 12:00 BP 167/81 07/23/19 12:00 Pulse Ox 95 07/23/19 12:00 Discharge Plan Discharge Patient Disposition: Home, Self-Care Condition: Stable Prescriptions: New atorvastatin 40 mg Tablet 40 mg PO BEDTIME Qty: 30 RF: 0 clopidogrel 75 mg Tablet 75 mg PO DAILY Qty: 30 RF: 0 Continued carvedilol 25 mg tablet 25 mg PO BID RF: 0 Lantus U-100 Insulin 100 unit/mL solution 10 unit SUBCUT BEDTIME RF: 0 aspirin 81 mg Tablet,Delayed Release (Dr/Ec) 81 mg PO DAILY RF: 0 levothyroxine 88 mcg tablet 88 mcg PO DAILY RF: 0 metformin 1,000 mg Tablet 1,000 mg PO BID RF: 0 nitroglycerin 0.4 mg Tablet, Sublingual 0.4 mg SUBLINGUAL Q5M PRN (Reason: Chest Pain) RF: 0 furosemide 20 mg tablet 20 mg PO DAILY RF: 0 Discontinued simvastatin 40 mg tablet PO DAILY RF: 0 Discharge Orders: Discharge Order (Routine); Ordered 07/23/19 Ordered By: Hector Eller Referrals: Hector Eller MD [Primary Care Provider] - 4-7 days (11:40 am Friday) Activity Restrictions/Additional Instructions: -Continue all of your home medications the same. We are going to add Plavix 75 mg once a day to your regimen. We are also changing your simvastatin to a atorvastatin. -Call if you have any strokelike symptoms. Follow-up with Dr. Eller middle part of next week.- Discharge Attestations Time Spent in Discharge Care*: less than 30 min Quality Metrics Clinical Quality Measures During this hospital stay, did patient experience: None Coding Level of Care Code Acute Geographic Information System Surveyor for Chg Fwd Diagnoses Transient cerebral ischemia G45.9 Transient cerebral ischemia type: unspecified Coronary artery disease I25.10 Multiple sclerosis G35 Diabetes mellitus type 2 in nonobese E11.9 Hypertension I10 Hyperlipidemia E78.5 Hypothyroidism (acquired) E03.9
[2019-07-23 13:42] VITALS: RESP 16; TEMP 36.6; O2SAT 95
== END 2019-07-23 16:00 | disposition home or self-care (01) ==
LOC: ER 18:14 → MEDSURG 20:13
PROVIDERS: Family Medicine; Admitting Provider Family Medicine; Emergency Provider Emergency Medicine; Family Provider Family Medicine; PCP Family Medicine; Visit Provider Family Medicine
DX: G45.9 Transient cerebral ischemic attack, unspecified (principal); I25.10 Atherosclerotic heart disease of native coronary artery without angina pectoris; G35 Multiple sclerosis; I11.0 Hypertensive heart disease with heart failure; I50.9 Heart failure, unspecified; E11.9 Type 2 diabetes mellitus without complications; E78.5 Hyperlipidemia, unspecified; E03.9 Hypothyroidism, unspecified; Z95.1 Presence of aortocoronary bypass graft; I25.2 Old myocardial infarction
CPT/HCPCS: 36416; 70450; 80053; 80307; 81003; 82962; 83690; 85025; 85610; 85730; 93306; 93880; 99221; 99283; 99285; G0378; J7040

== ENCOUNTER → 2019-07-30 11:47 | Outpatient (BNVA) | payer MEDICARE, OTHER, SELFPAY | PROVIDERS: Family Provider Family Medicine; PCP Family Medicine; Visit Provider Orthopaedic Surgery | DX: Z48.89 Encounter for other specified surgical aftercare (principal) | CPT/HCPCS: 73110 ==

== ENCOUNTER → 2019-08-22 11:22 | Outpatient (BNVA) | payer MEDICARE, OTHER, SELFPAY | PROVIDERS: Family Provider Family Medicine; PCP Family Medicine; Visit Provider Nurse Practitioner Family | DX: N39.0 Urinary tract infection, site not specified (principal) | CPT/HCPCS: 81003; 87086 ==

== ENCOUNTER → 2019-09-17 10:47 | Outpatient (BNVA) | payer MEDICARE, OTHER, SELFPAY | PROVIDERS: Family Provider Family Medicine; PCP Family Medicine; Visit Provider Orthopaedic Surgery | DX: Z48.89 Encounter for other specified surgical aftercare (principal) | CPT/HCPCS: 73110 ==

== ENCOUNTER → 2019-10-29 13:01 | Outpatient (BNVA) | payer MEDICARE, OTHER, SELFPAY | PROVIDERS: Family Provider Family Medicine; PCP Family Medicine; Visit Provider Orthopaedic Surgery | DX: Z48.89 Encounter for other specified surgical aftercare (principal); M25.511 Pain in right shoulder; S42.211A Unspecified displaced fracture of surgical neck of right humerus, initial encounter for closed fracture; X58.XXXA Exposure to other specified factors, initial encounter | CPT/HCPCS: 73030 ==

== ENCOUNTER → 2020-12-18 11:20 | Outpatient (BNVA) | payer MEDICARE, OTHER, SELFPAY | PROVIDERS: Family Provider Family Medicine; PCP Family Medicine; Visit Provider Nurse Practitioner | DX: M54.9 Dorsalgia, unspecified (principal); N39.0 Urinary tract infection, site not specified; G35 Multiple sclerosis | CPT/HCPCS: 81000 ==

== ENCOUNTER 2021-01-17 14:20 | Outpatient (CLI) | payer MEDICARE, OTHER, SELFPAY ==
--- NOTE | 2021-01-17 14:25 | XR_ITS ---
WS: [id number] SCREENING DEXA SCAN [place] CLINICAL INFORMATION: DIABETES MELLITUS, HYPOTHYROIDISM, HYPERLIDIDEMA, HYPERTENSI COMPARISON: None. FINDINGS: The L1-L4 bone mineral density measures 1.183 g/cm2. This corresponds to a T score score of 0.0 and Z score of 1.0. Left femoral neck bone mineral density measures 0.745 g/cm2. This corresponds to a T score of -2.1 an d Z score of -0.7. Right femoral neck bone mineral density measures 0.786 g/cm2. This corresponds to a T score -1.8of an d Z score of -0.4. Mean femoral neck bone mineral density measures 0.765 g/cm2. This corresponds to a T score of -1.9 an d Z score of -0.6. XR/XR DEXA axial skeleton* [id number] IMPRESSION: Normal bone mineral density lumbar spine. Osteopenia in the femoral necks. Patient's FRAX calculated 10 year probability for major osteoporotic fracture i s 27.5 % and osteoporotic hip fracture is 9.2%.
== END 2021-01-17 14:21 | disposition home or self-care (01) ==
LOC: RADWPI 14:24
PROVIDERS: PCP Family Medicine; Visit Provider Family Medicine
DX: Z00.00 Encounter for general adult medical examination without abnormal findings (principal); E11.9 Type 2 diabetes mellitus without complications; E03.9 Hypothyroidism, unspecified; E78.5 Hyperlipidemia, unspecified; I10 Essential (primary) hypertension; I25.10 Atherosclerotic heart disease of native coronary artery without angina pectoris
CPT/HCPCS: 77080

== ENCOUNTER 2021-01-22 08:14 | Outpatient (CLI) | payer MEDICARE, OTHER, SELFPAY ==
[2021-01-22 08:39] VITALS: BMI 33.6
--- NOTE | 2021-01-22 08:39 | NMCV_ITS ---
NM robin perf SPECT r/s* [id number] Pallavi Aguirre Age: 80 Gender: F : 1940 Exam Date: 01/22/2021 11:13 Ordering Phys: Hector Eller MD Technologist: GAUDENCIO Downey Exam Location: [facility] Indications: Chest pain, edema STRESS TEST Please [facility] findings IMAGE PROTOCOL Rest/Stress 1 Lexiscan Day Radiopharmaceutical Dose (mCi) Administration Site Administered by Rest: Tc-99m 10.8 IV GAUDENCIO Downey Sestamibi Stress:Tc-99m 33.0 IV GAUDENCIO Alanis Sestamibi Rest: 22-Jan-2021 60 Discovery 630 Stress: 22-Jan-2021 30 Discovery 630 0.4mg Lexiscan. Images obtained in supine and prone position. SPECT RESULTS Technical Quality: Excellent Raw Data Analysis: Normal Image Corrections: No attenuation or motion correction applied Summed Stress Score: 6 Summed Rest Score: 3 Summed Difference Score: 3 PERFUSION FINDINGS Small size perfusion abnormality of mild severity of apical lateral and apical wall on rest images with some reversibility in mid lateral wall on stress images. FUNCTIONAL RESULTS (calculated via Gated SPECT) Stress Image LV EF (%): 42 Stress EDV (mL):116 TID: 1.21 Stress ESV (mL):67 FUNCTIONAL FINDINGS: The left ventricle is dilated with stress. Transient Ischemia Dilatation of 1.2. There is mildly reduced left ventricular global systolic function. The left ventricular ejection fraction is mildly reduced with a value of 42%. There is mildly decreased wall thickening in apical lateral wall. IMPRESSIONS 1. Small sized partially reversible perfusion abnormality of mild severity in mid to apical lateral wall. 2. This is suggestive for myocardial infarction in circumflex artery territory with mild liliane-infarct ischemia. 3. There is mildly reduced left ventricular global systolic function, LVEF= 42%. 4. Transient ischemic dilation index mildly increased at 1.2. The left ventricle is dilated with stress. 5. No prior similar studies to compare. Kami Johnson MD (Electronically Signed) Final Date: 23 January 2021 10:28 S
--- NOTE | 2021-01-22 08:39 | ECG_ITS ---
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 Interpretive Statements NAME OF STUDY: LEXISCAN SESTAMIBI STRESS TEST INDICATION: Chest Pain PROCEDURE: At the baseline, the blood pressure was 183/108 mmHg, oxygen saturation 97% with a heart rate of 68 bpm. The electrocardiogram showed normal sinus rhythm with baseline artifact. Possible old anteroseptal infarct. Nonspecific ST-T wave changes. The Lexiscan was infused over a period of 20 seconds. A total of 0.4 milligrams of Lexiscan was infused. The stress phase was continued for a total of 5 minutes. Heart rate at the end of the stress phase was 87 bpm, oxygen saturation 96% with a blood pressure of 176/100 mmHg. The EKG at the peak infusion revealed no significant ST-T wave changes. PACs noted. Interpretation limited by baseline artifact. Sestamibi was injected 20 seconds after the Lexiscan infusion. Blood pressure at the end of the recovery phase was 185/93 mmHg, oxygen saturation 94% with a heart rate of 81 beats per minute. CONCLUSION: 1. No significant EKG changes with the LexiScan infusion. 2. No LexiScan induced chest pain or cardiac arrhythmia. 3. Baseline hypertension with normal blood pressure and heart rate response. 4. Sestamibi/sestamibi perfusion scan pending; see separate report. Electronically Signed On 01-23-2021 10:33:35 CDT by Kami Johnson M.D. [email or web address]
[2021-01-22] MEDS: regadenoson 0.4 Mg/5 ml Syringe IVP (10:49)
[2021-01-22 10:50] VITALS: BP 185/93; PULSE 86
== END 2021-01-22 08:15 | disposition home or self-care (01) ==
PROVIDERS: PCP Family Medicine; Visit Provider Family Medicine
DX: R07.9 Chest pain, unspecified (principal); R60.9 Edema, unspecified
CPT/HCPCS: 78452; 93017; A9500; J2785

== ENCOUNTER 2021-02-13 06:54 | Outpatient (CLI) | payer MEDICARE, OTHER, SELFPAY ==
--- NOTE | 2021-02-13 07:02 | USCV_ITS ---
Pallavi Aguirre Age: 80 Gender: F : 1940 Exam Date: 02/13/2021 07:17 Ordering Phys: Hector Eller MD Technologist: CE Exam Location: [facility] [place] Indication: CHEST PAIN BP: 129 / 95 HR: 72 Rhythm: Other Technical Quality: Fair MEASUREMENTS (Male / Female) Normal Values 2D ECHO LV Diastolic Diameter PLAX 3.5 cm 4.2 - 5.9 / 3.9 - 5.3 cm LV Systolic Diameter PLAX 2.9 cm IVS Diastolic Thickness 1.2 cm 0.6 - 1.0 / 0.6 - 0.9 cm IVS Systolic Thickness 1.4 cm LVPW Diastolic Thickness 1.6 cm 0.6 - 1.0 / 0.6 - 0.9 cm LVPW Systolic Thickness 2.1 cm LVOT Diameter 2.0 cm LV Ejection Fraction 2D Teich 36.3 % LV Ejection Fraction MOD 2C 20.9 % LV Ejection Fraction 2C AL 24.0 % LA Diameter 4.2 cm LA Width 4.2 cm LA Height 5.2 cm RA Width 3.4 cm RA Height 4.7 cm Aorta at Sinotubular Diameter 2.4 cm M-MODE Aortic Annulus Diameter 2.5 cm LA Ao Ratio MM 1.8 MV E Point Septal Separation 1.4 cm DOPPLER AV Peak Velocity 130.0 cm/s LVOT Peak Velocity 91.0 cm/s AV Area Cont Eq vti 2.0 cm squared AV Area Cont Eq pk 2.2 cm squared MV Peak Velocity 684.0 cm/s TR Peak Velocity 255.8 cm/s TR Peak Gradient 26.2 mmHg Right Atrial Pressure 3.0 mmHg Pulmonary Artery Systolic Pressu 29.2 mmHg RV Acceleration Time 0.1 s RV Ejection Time 0.3 s RV AcT/ET 0.3 FINDINGS Left Ventricle Normal left ventricular cavity size. Moderately decreased left ventricular systolic function. Left ventricular ejection fraction is estimated at 30%. Moderate global hypokinesis. Abormal diastolic function. Abnormal septal motion. Right Ventricle Normal right ventricular size and systolic function. Right ventricular systolic pressure 41 mmHg. Right Atrium Normal right atrial size. Left Atrium Mildly increased left atrial size. Mitral Valve Mild mitral annular calcification. Thickened mitral valve. No mitral valve stenosis. Trace mitral valve regurgitation. Aortic Valve Mildly thickened trileaflet aortic valve. No aortic valve stenosis. Trace aortic valve regurgitation. Tricuspid Valve Structurally normal tricuspid valve. No tricuspid valve stenosis. Trace tricuspid valve regurgitation. Pulmonic Valve Pulmonic valve not well visualized. Pericardium No pericardial effusion. Aorta Normal size aortic root and proximal ascending aorta. Plaque seen in the aortic root. CONCLUSIONS 1. This is a technically difficult study. 2. Normal left ventricular cavity size. Moderately decreased left ventricular systolic function. Left ventricular ejection fraction is estimated at 30%. Moderate global hypokinesis. Abormal diastolic function. 3. Normal right ventricular size and systolic function. 4. Mildly increased left atrial size. 5. No significant valvular abnormality. 6. Direct comparison to previous study is not possible given technical differences in study. Repeat study with echo contrast is recommended. Kami Johnson MD (Electronically Signed) Final Date: 19 February 2021 12:47 S
== END 2021-02-13 06:55 | disposition home or self-care (01) ==
PROVIDERS: PCP Family Medicine; Visit Provider Family Medicine
DX: R07.9 Chest pain, unspecified (principal); R60.9 Edema, unspecified
CPT/HCPCS: 93306

== ENCOUNTER → 2021-04-10 08:27 | Outpatient (BNVA) | payer MEDICARE, OTHER, SELFPAY | PROVIDERS: PCP Family Medicine; Referring Provider Internal Medicine Cardiovascular Disease; Visit Provider Internal Medicine Cardiovascular Disease | DX: Z01.818 Encounter for other preprocedural examination (principal); Z20.822 Contact with and (suspected) exposure to COVID-19; R94.39 Abnormal result of other cardiovascular function study; I25.10 Atherosclerotic heart disease of native coronary artery without angina pectoris | CPT/HCPCS: 80048; 85025; 85610; 87635 ==

== ENCOUNTER 2021-04-25 10:20 | Observation (INO) | payer MEDICARE, OTHER, SELFPAY ==
[2021-04-25 07:30] VITALS: BP 204/83; PULSE 63; RESP 17; TEMP 36.7; O2SAT 97; BMI 35.6
--- NOTE | 2021-04-25 07:30 | XACV_ITS ---
Ht: 160 cm Wt: 91 kg BSA: 2.05 m2 Gender: Female : 1940 Any Known Allergies: Codeine Exam Priority: Routine Procedure(s): Procedure Description: Diagnostic procedure Procedure Description: Venous Graft Catheterization Procedure Description: WARD Graft Catheterization Procedure Description: Coronary Angiography Diagnostic Cath Status: Elective Diagnostic Findings * Severe [place] coronary artery disease. * Patent WARD and SVG to RCA. SVG to * left circumflex artery is occluded.. * Coronary angiography shows right dominance. Conclusions 1. Severe [place] coronary artery disease. 2. Patent WARD and SVG to RCA. SVG to 3. left circumflex artery is occluded.. 4. Patient has prior CABG. Recommendations * Recommend medical therapy for her coronary artery disease. SVG to OM is occluded and left circumflex artery is small caliber diffusely diseased vessel. * Aggressive risk factor modification. * Outpatient cardiology follow-up in 4 weeks. Interventional RX Recommendation: medical therapy and/or counseling Diagnostic RX Recommendation: medical therapy and/or counseling Pressures Phase:Rest AO : 193 / 84 ( 125 ) @ 8:14:00 AM 157 / 84 ( 117 ) @ 8:19:00 AM Procedural Details Procedure Consent Obtained. Pre-Procedure Time Out. Identified patient by full name and date of as verbalized by the patient/guarantor. Does the consent match the physician's order: Yes. Accurate & Complete Informed Consent: Yes. Inpatient/Outpatient History & Physical on Chart: Yes. If H&P is completed, is and addenduem needed: No; If yes, is the addendum complete: N/A. Visualize and Verify Site with Patient/Guarantor: N/A. Relevant Radiology Images available: N/A. Pre-op teaching completed and patient verbalized understanding. The risks, benefits, and alternatives of sedation and/or procedure were discussed by physician. The patient agrees to continue. Dewey Galindo will be valve technician and Gail Song RN will be circultation nurse for procedure. Procedure started. [facility] Clinical Fraility Score: 3: Managing Well. Night Shift Indications: Worsening Angina. Chest Pain Symptom Assessment: Atypical Angina. Cardiovascular Instability: No, if yes, Persistant Ischemic Symptoms. Correct patient, site and procedure confirmed by cath team. PERRLA. Strong, equal hand usability specialist bilaterally. Lungs clear x 5 lobes. IV Site on Arrival: 20 gauge in the right anticubital. IV Fluids: 0.9% NaCl at KVO. 0 mL infused prior to laborer tree tapping. Pre Procedural Pulses: bilateral dorsalis pedis was Doppled. Pre Procedural Pulses: bilateral posterior tibial was Doppled. Pre Procedural Pulses: bilateral radial was 2+. Oxygen started at 2liters/min via nasal canula. bilateral groins was prepped with chloroprep then draped in the usual sterile fashion. Baseline sample Acquired. HR: 82 BPM. Physician notified. Equipment: 6F - Femoral. Cardiac Cath Pack. ACIST Manifold Kit Model BT 2000. Heparinized Saline (2 units/mL), 1000 mL bag. Kit, Micropuncture. Physician arrived. Physician scrubbed in. Immediate Pre-Procedure Time Out. Correct Patient: Yes; Correct Procedure: Yes; Correct Site: Yes; Correct Patient Position: Yes; Correct Supplies: Yes; Dried Flammable Prep: Yes; Blood Products Available: N/A;. Lidocaine 1% infiltrated to the right groin. Arterial access obtained with micropuncture set. A 5 anguillan JL4 catheter in over wire. Multiple views taken of left coronary artery. Catheter removed over the standard wire. A 5 anguillan JR4 catheter in over wire. Multiple views taken of right coronary artery. Catheter redirected to the WARD. SVG's to RCA visualized and patent. WARD to LAD visualized. Catheter removed over the standard wire. A 6 anguillan AL1 catheter in over wire. Catheter removed over the standard wire. A 5 anguillan Angled Pig catheter in over wire. Aortogram performed in MICHELLE @ 12 mL/second for a total of 30 mL. Catheter removed over the standard wire. A 5 anguillan JL4 catheter in over wire. Multiple views taken of left coronary artery. Catheter removed over the standard wire. A Right femoral angiogram was performed to determine safe placement of closure device. Angioseal Lot#[id number] placed without complications. No signs or symptoms of hematoma noted. Sterile dressing applied per usual sterile fashion. A Angio-Seal VIP ([place]andre) was successful obtaining hemostatsis at the Right Femoral artery insertion site. Post Procedure: Pulses reassessed and unchanged. PERRLA. Strong, equal hand usability specialist bilaterally. No VTE prophylaxis required. Medication's Wasted: Nitro = 49.8 mcg. Medication's Wasted: Lidocaine 1% = 4 mL. Medication's Wasted: Other = Fentanyl 50 mg. Medication's Wasted: Heparin = 1000 units. Total IV fluids: 65 mL. Procedure completed. Patient transferred by bed to 1st floor. Access Site Site: Right Femoral artery Sheath Size: 6 Fr Hemostasis Method: Angio-Seal VIP ([facility]andre) Hemostasis Success: Successful Procedure Medications Start: 8:59 AM Stop: 8:59 AM Medication: Fentanyl Amount: 50 mcg Start: 9:05 AM Stop: 9:05 AM Medication: Versed Amount: 1 mg Route: I.V. Start: 9:08 AM Stop: 9:08 AM Medication: Hydralazine Amount: 10 mg Route: I.V. Start: 9:15 AM Stop: 9:15 AM Medication: Hydralazine Amount: 10 mg Route: I.V. Start: 9:35 AM Stop: 9:35 AM Medication: Versed Amount: 1 mg Route: I.V. I, the attending physician, have reviewed and verified all procedure medications. Yes, all medications given per verbal order History/Risk Factors Hypertension: Yes Dyslipidemia: Yes Peripheral Arterial Disease (PAD): No Myocardial Infarction (NC): No Obesity: No Renal Disease: No Prior Interventions PCI: No CABG: Yes Valve Surgery: No Report Signatures Finalized by Krishna Corbett MD on 05/09/2021 07:08 PM
[2021-04-25] MEDS: diphenhydrAMINE 50 mg Capsule PO (08:08)
--- NOTE | 2021-04-25 09:04 | W.PM.OPSFHP ---
Same Day Surgery H&P Indication for Procedure/HPI DATE OF PROCEDURE: April 25, 2021 CHIEF COMPLAINT/INDICATIONFOR SURGICAL PROCEDURE: Chest pain/ abnormal stress test PREOP DIAGNOSIS: chest pain/ abnormal stress test PLANNED PROCEDRUE: Operation Date: 04/25/21 08:30 Proposed Procedures p Cardiac Catheterization(Left) - Krishna Corbett M.D Possible percutaneous coronary intervention 80 yo woman with PMHx of CAD s/p CABGx 4 in 2005, hypertension, hypothyroidism, insulin dependant DM-2 and dyslipidemia who had been having chest pain symptoms for the last 2 to 3 months. Mainly she feels pain between the shoulder blades. She had a Lexiscan done that showed myocardial infarction in the left circumflex artery territory with the liliane-infarct ischemia. Given her symptoms plan is to perform coronary angiogram with possible percutaneous coronary intervention. ROS CONSTITUTIONAL: No fever or chills. [] EYES: No blurring of vision or other visual disturbances lately. [] ENT: No hoarseness of voice, auditory disturbances or sore throat. [] CARDIOVASCULAR: As mentioned above. [] RESPIRATORY: No significant cough. [] GASTROINTESTINAL: No hematemesis or melena. [] GENITOURINARY: No dysuria or hematuria. [] INTEGUMENTARY: No skin rashes or history of skin cancer. [] NEURO: No transient ischemic attacks or amaurosis. [] PSYCHIATRIC: No history of psychosis or major depression. [] HEMATOLOGIC: No bleeding disorders or significant anemia. [] ENDOCRINE: No history of polyuria or polydipsia. [] MUSCULOSKELETAL: No recent joint pain or swelling. [] ALLERGY/IMMUNOLOGY: As mentioned above. [] Medications/Allergies* Home Medications Medication Instructions Recorded Confirmed Type Lantus U-100 Insulin 35 unit SUBCUT BEDTIME 07/22/19 04/25/21 History aspirin 81 mg PO DAILY 07/22/19 04/25/21 History carvedilol 25 mg PO BID 07/22/19 04/25/21 History furosemide 20 mg PO DAILY 07/22/19 04/25/21 History levothyroxine 88 mcg PO DAILY 07/22/19 04/25/21 History metformin 1,000 mg PO BID 07/22/19 04/25/21 History nitroglycerin 0.4 mg SUBLINGUAL Q5M PRN 07/22/19 04/25/21 History losartan 25 mg tablet 25 mg PO DAILY 12/18/20 04/25/21 History atorvastatin 20 mg tablet 20 mg PO DAILY 02/01/21 04/25/21 History insulin aspart U-100 [Novolog 18 unit SUBCUT TIDWMEAL 02/01/21 04/25/21 History U-100 Insulin aspart] Allergies/Adverse Reactions Allergy/AdvReac Type Severity Reaction Status Date / Time codeine AdvReac ADR-Gastrointestinal Verified 04/25/21 08:33 Upset Current Medications: Generic Name Dose Route Start Last Admin Trade Name Daphnie PRN Reason Stop Dose Admin Sodium Chloride 1,000 mls @ 50 mls/hr 04/25/21 07:30 04/25/21 08:08 Sodium Chloride 0.9% IV 04/26/21 03:29 Not Given .Q20H ONE Pertinent History/Comorbid Conditions* Medical History (Updated 02/04/21 @ 10:40 by Kami Johnson MD) Congestive heart failure Coronary artery disease CABG x3 and 2006. No history of [place] with this. Diabetes mellitus type 2 in nonobese Encounter for Postoperative Care Fracture of proximal end of right humerus History of malignant melanoma Hx-TIA (transient ischemic attack) Hyperlipidemia Hypertension Hypothyroidism (acquired) Multiple sclerosis Diagnosed since 1988. No treatment. Has chronic right leg numbness Family History (Updated 07/30/19 @ 11:57 by Mary Srivastava LPN) Diabetes Stroke Social History Smoking and tobacco status: never smoked Alcohol intake: never History of recent travel: No Pertinent Exam Findings alert, oriented x 3, clear to auscultation bilaterally and regular rate & rhythm Conscious Sedation Assessment PATIENT ASSESSED PRIOR TO SEDATION, WITH NO CHANGE NOTED: Yes AIRWAY EVAL/ANESTHESIA PLAN: normal airway, ASA III, Monitored Anesthesia, Local Anesthesia, Risks, benefits & alternatives of sedation and/or procedure discussed and Patient agrees to continue as planned Recommendations Surgery/Procedure today (Left heart cath with possible percutaneous coronary intervention) Coding Level of Care Code Acute Highway Construction Inspector for Jama James
[2021-04-25 10:15] VITALS: BP 144/63; PULSE 80; RESP 17
[2021-04-25 10:30] VITALS: BP 122/63; PULSE 79; RESP 15
[2021-04-25 10:45] VITALS: BP 141/72; RESP 24
[2021-04-25 16:20] VITALS: BP 149/90; PULSE 70; RESP 18; O2SAT 92
--- NOTE | 2021-04-26 13:53 | PC.SOCIAL ---
discharge follow up call made, spoke with patient. patient reports she is getting around slow but doing good. patient reports her incision site is clean and free from redness. patient had no changes in medications, only to hold metformin until 15, which she was aware of. patient has follow up appointments with gordo cruz and dr. tran, she was aware of those appointment dates and times. no questions voiced.
== END 2021-04-25 16:05 | disposition home or self-care (01) ==
LOC: CSU 10:21
PROVIDERS: Admitting Provider Internal Medicine; PCP Family Medicine; Visit Provider Internal Medicine
DX: I25.10 Atherosclerotic heart disease of native coronary artery without angina pectoris (principal); R07.9 Chest pain, unspecified; R94.39 Abnormal result of other cardiovascular function study; Z95.1 Presence of aortocoronary bypass graft; E03.9 Hypothyroidism, unspecified; E11.9 Type 2 diabetes mellitus without complications; Z79.4 Long term (current) use of insulin; E78.5 Hyperlipidemia, unspecified; Z79.82 Long term (current) use of aspirin; Z79.84 Long term (current) use of oral hypoglycemic drugs; I50.9 Heart failure, unspecified; I11.0 Hypertensive heart disease with heart failure; Z86.73 Personal history of transient ischemic attack (TIA), and cerebral infarction without residual deficits; Z83.3 Family history of diabetes mellitus; Z82.3 Family history of stroke
CPT/HCPCS: 93455; C1760; C1769; C1887; C1894; G0378; J0360; J1644; J2250; J3010; J3490; J7030; Q0163; Q9967

== ENCOUNTER → 2021-05-02 15:45 | Outpatient (BNVA) | payer MEDICARE, OTHER, SELFPAY | PROVIDERS: PCP Family Medicine; Visit Provider Nurse Practitioner Family | DX: I25.119 Atherosclerotic heart disease of native coronary artery with unspecified angina pectoris (principal) | CPT/HCPCS: 80048 ==

== ENCOUNTER → 2021-06-18 08:58 | Outpatient (BNVA) | payer MEDICARE, OTHER, SELFPAY | PROVIDERS: PCP Family Medicine; Visit Provider Internal Medicine Cardiovascular Disease | DX: I50.32 Chronic diastolic (congestive) heart failure (principal); I25.119 Atherosclerotic heart disease of native coronary artery with unspecified angina pectoris | CPT/HCPCS: 80048; 83735; 83880 ==

== ENCOUNTER → 2022-01-02 15:29 | Outpatient (BNVA) | payer MEDICARE, OTHER, SELFPAY | PROVIDERS: PCP Family Medicine; Visit Provider Family Medicine | DX: I25.10 Atherosclerotic heart disease of native coronary artery without angina pectoris (principal); E11.9 Type 2 diabetes mellitus without complications; E03.9 Hypothyroidism, unspecified; I10 Essential (primary) hypertension | CPT/HCPCS: 80053; 83036; 83880; 84443; 85025 ==

== ENCOUNTER → 2022-02-11 10:57 | Outpatient (BNVA) | payer MEDICARE, OTHER, SELFPAY | PROVIDERS: PCP Family Medicine; Visit Provider Internal Medicine Cardiovascular Disease | DX: I25.119 Atherosclerotic heart disease of native coronary artery with unspecified angina pectoris (principal); I11.0 Hypertensive heart disease with heart failure; I50.32 Chronic diastolic (congestive) heart failure; Z95.1 Presence of aortocoronary bypass graft | CPT/HCPCS: 99214 ==

== ENCOUNTER → 2022-06-17 15:21 | Outpatient (BNVA) | payer MEDICARE, OTHER, SELFPAY | PROVIDERS: PCP Family Medicine; Visit Provider Family Medicine | DX: I10 Essential (primary) hypertension (principal); E03.9 Hypothyroidism, unspecified; E78.5 Hyperlipidemia, unspecified; E11.9 Type 2 diabetes mellitus without complications | CPT/HCPCS: 80053; 80061; 83036; 84443 ==

== ENCOUNTER → 2022-12-16 12:43 | Outpatient (BNVA) | payer MEDICARE, OTHER, SELFPAY | PROVIDERS: PCP Family Medicine; Visit Provider Family Medicine | DX: N39.0 Urinary tract infection, site not specified (principal); E03.9 Hypothyroidism, unspecified; I10 Essential (primary) hypertension; E78.5 Hyperlipidemia, unspecified; E11.9 Type 2 diabetes mellitus without complications | CPT/HCPCS: 81000; 87086 ==

== ENCOUNTER → 2023-01-02 15:01 | Outpatient (BNVA) | payer MEDICARE, OTHER, SELFPAY | PROVIDERS: PCP Family Medicine; Visit Provider Internal Medicine Cardiovascular Disease | DX: I11.0 Hypertensive heart disease with heart failure (principal); I50.32 Chronic diastolic (congestive) heart failure; I25.119 Atherosclerotic heart disease of native coronary artery with unspecified angina pectoris; Z95.1 Presence of aortocoronary bypass graft | CPT/HCPCS: 99214 ==

== ENCOUNTER 2023-01-13 07:41 | Outpatient (CLI) | payer MEDICARE, OTHER, SELFPAY ==
[2023-01-13 08:28] LABS: Blood Urea Nitrogen 17 mg/dL (8-23); Calcium 8.8 mg/dL (8.5-10.5); Carbon Dioxide 26 mmol/L (22-29); Chloride 102 mmol/L (98-107); Glucose 114 mg/dL (65-115); Magnesium 1.8 mg/dL (1.7-2.3); NT Pro B Type Natriuretic Pept 172 pg/mL (0-450); Osmolality Calculated 282 mOsm/kg (285-295); Sodium 135 mmol/L (136-145)
[2023-01-13 08:29] LABS: Anion Gap 11.5 (5-19); Potassium 4.5 mmol/L (3.5-5.1)
== END 2023-01-13 07:42 | disposition home or self-care (01) ==
LOC: LAB 07:45
PROVIDERS: PCP Family Medicine; Visit Provider Internal Medicine Cardiovascular Disease
DX: I11.0 Hypertensive heart disease with heart failure (principal); I50.9 Heart failure, unspecified; I25.10 Atherosclerotic heart disease of native coronary artery without angina pectoris
CPT/HCPCS: 36415; 80048; 83735; 83880

== ENCOUNTER 2023-01-20 13:07 | Outpatient (CLI) | payer MEDICARE, OTHER, SELFPAY ==
--- NOTE | 2023-01-20 14:00 | USCV_ITS ---
Pallavi Aguirre Age: 82 Gender: F : 1940 Exam Date: 01/20/2023 13:32 Ordering Phys: Kami Johnson MD ([email or web address]) Technologist: CT Exam Location: [facility] – [place] Indication: Congestive heart failure BP: 150 / 70 HR: 67 Rhythm: Sinus Technical Quality: Adequate MEASUREMENTS (Male / Female) Normal Values 2D ECHO LV Diastolic Diameter PLAX 4.8 cm 4.2 - 5.9 / 3.9 - 5.3 cm LV Systolic Diameter PLAX 2.7 cm LV Chamber Size 5.5 cm IVS Diastolic Thickness 1.1 cm 0.6 - 1.0 / 0.6 - 0.9 cm IVS Systolic Thickness 1.2 cm LVPW Diastolic Thickness 1.6 cm 0.6 - 1.0 / 0.6 - 0.9 cm LVPW Systolic Thickness 1.8 cm RV Chamber Size 3.8 cm LVOT Diameter 2.0 cm LV Ejection Fraction 2D Teich 67.9 % LV Ejection Fraction MOD 2C 54.7 % LV Ejection Fraction 2C AL 54.0 % LA Diameter 4.4 cm LA Width 4.4 cm LA Height 5.7 cm RA Width 3.7 cm RA Height 5.2 cm Aorta at Sinotubular Diameter 2.3 cm IVC Diameter 1.5 cm M-MODE Aortic Annulus Diameter 2.7 cm LA Ao Ratio MM 1.6 MV E Point Septal Separation 1.1 cm DOPPLER AV Peak Velocity 127.0 cm/s LVOT Peak Velocity 83.0 cm/s AV Area Cont Eq vti 2.3 cm squared AV Area Cont Eq pk 2.1 cm squared MV Peak Velocity 107.0 cm/s MV Area PHT 3.2 cm squared Mitral E to A Ratio 0.9 MV E' Velocity 43.5 cm/s Mitral E to MV E' Ratio 13.5 Mitral E to LV E' Lateral Ratio 12.4 Mitral E to LV E' Septal Ratio 14.7 TR Peak Velocity 238.2 cm/s TR Peak Gradient 22.7 mmHg TR Mean Velocity 205.9 cm/s TR Mean Gradient 18.0 mmHg TR Velocity Time Integral 77.2 cm TV Peak E Velocity 72.0 cm/s Right Atrial Pressure 3.0 mmHg Pulmonary Artery Systolic Pressu 25.7 mmHg FINDINGS Left Ventricle Normal left ventricular cavity size. Mildly decreased left ventricular systolic function. Increased left ventricular wall thickness. Left ventricular ejection fraction is estimated at 45-50 %. Mild global hypokinesis. Grade II diastolic dysfunction, moderately elevated filling pressures. Right Ventricle Normal right ventricular size and systolic function. Right ventricular systolic pressure 25.7 mmHg. Right Atrium Normal right atrial size. Left Atrium Moderately increased left atrial size. Mitral Valve Mild mitral annular calcification. Mildly thickened mitral valve. No mitral valve stenosis. Mild mitral valve regurgitation. Aortic Valve Mildly thickened trileaflet aortic valve. No aortic valve stenosis. No aortic valve regurgitation. Tricuspid Valve Structurally normal tricuspid valve. Mild tricuspid valve regurgitation. Pulmonic Valve Pulmonic valve not well visualized. Pericardium No pericardial effusion. Aorta Normal size aortic root and proximal ascending aorta. IVC Normal IVC dimension with >50% respiratory change of the inferior vena cava. CONCLUSIONS 1. Normal left ventricular cavity size. Mildly decreased left ventricular systolic function. Increased left ventricular wall thickness. Left ventricular ejection fraction is estimated at 45-50 %. Mild global hypokinesis. Grade II diastolic dysfunction, moderately elevated filling pressures. 2. Mild mitral and tricuspid valve regurgitation. 3. When compared to study dated 02/13/21, left ventricular systolic function seems to have improved from 30% then. Kami Johnson MD (Electronically Signed) Final Date: 29 January 2023 07:45 S
== END 2023-01-20 13:08 | disposition home or self-care (01) ==
PROVIDERS: PCP Family Medicine; Visit Provider Internal Medicine Cardiovascular Disease
DX: I50.9 Heart failure, unspecified (principal); I34.0 Nonrheumatic mitral (valve) insufficiency; I07.1 Rheumatic tricuspid insufficiency
CPT/HCPCS: 93306

== ENCOUNTER → 2023-02-27 07:37 | Outpatient (BNVA) | payer MEDICARE, OTHER, SELFPAY | PROVIDERS: PCP Family Medicine; Visit Provider Clinical Nurse Specialist Adult Health | DX: R30.0 Dysuria (principal) | CPT/HCPCS: 81000; 87086 ==

== ENCOUNTER → 2023-03-25 10:45 | Outpatient (BNVA) | payer MEDICARE, OTHER, SELFPAY | PROVIDERS: PCP Family Medicine; Visit Provider Family Medicine | DX: R30.0 Dysuria (principal) | CPT/HCPCS: 81000 ==

== ENCOUNTER → 2023-04-24 09:57 | Outpatient (BNVA) | payer MEDICARE, OTHER, SELFPAY | PROVIDERS: PCP Family Medicine; Visit Provider Family Medicine | DX: E03.9 Hypothyroidism, unspecified (principal); I10 Essential (primary) hypertension; E78.5 Hyperlipidemia, unspecified; E11.9 Type 2 diabetes mellitus without complications; I25.119 Atherosclerotic heart disease of native coronary artery with unspecified angina pectoris | CPT/HCPCS: 80053; 80061; 83036; 84443; 85025 ==

== ENCOUNTER → 2023-05-01 13:21 | Outpatient (BNVA) | payer MEDICARE, OTHER, SELFPAY | PROVIDERS: PCP Family Medicine; Visit Provider Internal Medicine Cardiovascular Disease | DX: I11.0 Hypertensive heart disease with heart failure (principal); I50.32 Chronic diastolic (congestive) heart failure; I25.119 Atherosclerotic heart disease of native coronary artery with unspecified angina pectoris; E78.5 Hyperlipidemia, unspecified; E11.9 Type 2 diabetes mellitus without complications; Z95.1 Presence of aortocoronary bypass graft; Z79.4 Long term (current) use of insulin | CPT/HCPCS: 99214 ==

== ENCOUNTER 2023-07-24 15:57 | Observation (INO) | payer MEDICARE, OTHER, SELFPAY ==
[2023-07-24] VITALS (30 sets, daily range): BP systolic 166–198; BP diastolic 73–95; PULSE 62–76; RESP 13–31; TEMP 36.4; O2SAT 75–100; BMI 31.8
--- NOTE | 2023-07-24 15:59 | ED_ITS ---
HPI - General Adult 2 General: Chief complaint: Altered Mental Status Stated complaint: hypoglycemia Time Seen by Provider: 07/24/23 15:59 Source: patient Mode of arrival: ambulatory History of Present Illness: 82-year-old female presents emergency ro om she was driving and became disoriented she has a history of diabetes she stopped bystander gave her glucagon according to EMS. She is also given crackers and juice blood glucose was 75 upon arrival she was allowed to eat some warm. She is feeling better she is awake and alert she does remember checking her blood sugar this morning states it was 110 she does not take any sulfonylureas she takes metformin and both long-acting and short acting insulins. She does states she missed a meal earlier today. Onset (ago): minute(s) Associated symptoms: Deny chest pain, dyspnea or rash Review of Systems 2 Const: Denies: fever(s) or chills Card: Denies: chest pain Resp: Denies: dyspnea GI: Denies: abdominal pain : Denies: dysuria, urinary frequency or urinary urgency Musc: Denies: neck pain or back pain Skin/Breast: Denies: rash PFSH ED 2 PFSH: Medical History Hx-TIA (transient ischemic attack) History of malignant melanoma Fracture of proximal end of right humerus Encounter for Postoperative Care Congestive heart failure Hypothyroidism (acquired) Hyperlipidemia Hypertension Diabetes mellitus type 2 in nonobese Coronary artery disease CABG x3 and 2006. No history of [place] with this. Multiple sclerosis Diagnosed since 1988. No treatment. Has chronic right leg numbness Family History Other Diabetes Stroke Social History Smoking and tobacco/nicotine status: never used tobacco/nicotine Alcohol intake: never Substance/Drug Use: never Physical Exam 2 Const: COMMON NORMALS: no acute distress GENERAL APPEARANCE: cooperative and comfortable ORIENTATION/CONSCIOUSNESS: Yes awake, Yes oriented to person, Yes oriented to place and Yes oriented to time HENMT: COMMON NORMALS: normocephalic, atraumatic and hearing grossly normal bilaterally HEAD & SCALP: normocephalic and atraumatic Resp: COMMON NORMALS: normal respiratory effort, No retractions, No use of accessory muscles and clear to auscultation bilaterally AUSCULTATION: clear to auscultation bilaterally Cardio: COMMON NORMALS: regular rate, regular rhythm and No murmurs present (Cardio) RATE: regular rate RHYTHM: regular rhythm GI: COMMON NORMALS: Soft to palpation and No hepatosplenomegaly present A USCULTATION: Yes normoactive bowel sounds PALPATION: Yes Soft to palpation, No Tenderness to palpation present (GI), No Guarding due to palpation present (GI) and Yes No hepatosplenomegaly present Extremity: COMMON NORMALS: normal to inspection, capillary refill normal, no clubbing, cyanosis or edema, no calf tenderness and no pedal edema Neuro: SENSORIUM/ORIENTATION: Yes oriented to person, Yes oriented to place and Yes oriented to time Skin: COMMON NORMALS: no rashes or lesions noted GENERAL SKIN EXAM: no rashes or lesions noted Course 2 Vital Signs: Vital signs: Vital Signs Temperature 97.5 F L 07/24/23 16:00 Pulse Rate 71 07/24/23 17:30 Respiratory Rate 22 H 07/24/23 17:30 Blood Pressure 198/95 07/24/23 17:30 Pulse Oximetry 90 07/24/23 17:30 Oxygen Delivery Me thod Room Air 07/24/23 16:25 MDM - General Adult Medical Decision Making Patient presented hypoglycemic she had rebounded and was awake and alert then became hypoglycemic again. Gave an amp of D50 started on a D5 drip. Will place her on observation to stabilize her blood blood sugars. Discussed Dr. Cortez orders written i Medical Records I reviewed the patient's medical records. Lab Data I reviewed the patient's lab results. 07/24/23 15:40 07/24/23 15:40 Laboratory Results WBC 16.52 10^3/uL (3.29-11.43) H 07/24/23 15:40 RBC 5.12 10^6/uL (3.85-5.65) 07/24/23 15:40 Hgb 15.50 g/dL (11.27-16.99) 07/24/23 15:40 Hct 47.5 % (36-47) H 07/24/23 15:40 MCV 92.8 fl (85-98) 07/24/23 15:40 MCH 30.3 pg (27-33) 07/24/23 15:40 MCHC 32.6 g/dL (30-55) 07/24/23 15:40 RDW 13.1 % (12.1-15.1) 07/24/23 15:40 Plt Count 368 10^3/cmm (157-399) 07/24/23 15:40 MPV 9.9 fL (7.4-10.4) 07/24/23 15:40 Neut % (Auto) 65.5 % 07/24/23 15:40 Lymph % (Auto) 25.6 % 07/24/23 15:40 [place] % (Auto) 6.2 % 07/24/23 15:40 Eos % (Auto) 1.6 % 07/24/23 15:40 Baso % (Auto) 0.4 % 07/24/23 15:40 Neut # (Auto) 10.82 10^3/uL (1.8-7.7) H 07/24/23 15:40 Lymph # (Auto) 4.2 10^3/uL (0.8-4.8) 07/24/23 15:40 [place] # (Auto) 1.0 10^3/uL (0.2-0.9) H 07/24/23 15:40 Eos # (Auto) 0.3 10^3/uL (0.0-0.8) 07/24/23 15:40 Baso # (Auto) 0.1 10^3/uL (0.0-0.1) 07/24/23 15:40 Nucleated RBC % (auto) 0 % 07/24/23 15:40 Nucleated RBCs # 0.0 /100WBC 07/24/23 15:40 Sodium 143 mmol/L (136-145) 07/24/23 15:40 Potassium 4.0 mmol/L (3.5-5.1) 07/24/23 15:40 Chloride 105 mmol/L (98-107) 07/24/23 15:40 Carbon Dioxide 24 mmol/L (22-29) 07/24/23 15:40 Anion Gap 18.0 (5-19) 07/24/23 15:40 BUN 21 mg/dL (8-23) 07/24/23 15:40 Creatinine 1.2 mg/dL (0.5-0.9) H 07/24/23 15:40 GFR Calculation Not Reportable 07/24/23 15:40 Glucose 47 mg/dL (65-115) L 07/24/23 15:40 POC Glucose 55 mg/dL (70-110) L 07/24/23 17:36 Calculated Osmolality 296 mOsm/kg (285-295) H 07/24/23 15:40 Calcium 9.8 mg/dL (8.5-10.5) 07/24/23 15:40 Total Bilirubin 0.4 mg/dL (0.15-1.2) 07/24/23 15:40 AST 19 U/L (0-32) 07/24/23 15:40 ALT 14 U/L (0-33) 07/24/23 15:40 Alkaline Phosphatase 103 U/L (35-105) 07/24/23 15:40 Total Protein 7.6 g/dL (6.6-8.7) 07/24/23 15:40 Albumin 4.1 g/dL (3.5-5.2) 07/24/23 15:40 Globulin 3.5 g/dL (1.3-4.6) 07/24/23 15:40 All radiology interpretation(s) finalized by discharge Discharge Plan Discharge Patient Disposition: Placed in Observation Clinical Impression: Hypoglycemia Prescriptions: No Action losartan 25 mg tablet 25 mg PO DAILY insulin aspart U-100 [Novolog FlexPen U-100 Insulin] 100 unit/mL (3 mL) insulin pen 20 unit SUBCUT TID Qty: 15 11RF furosemide 40 mg tablet 40 mg PO BID spironolactone 25 mg tablet 37.5 mg PO DAILY Qty: 135 3RF clopidogrel 75 mg tablet See Rx Instructions .ROUTE .COMPLEX Qty: 90 3RF Dose Instruction: TAKE 1 TABLET EVERY DAY Rx Instructions: TAKE 1 TABLET EVERY DAY magnesium oxide 400 mg magnesium tablet 400 mg PO DAILY Qty: 90 2RF metformin 1,000 mg tablet See Rx Instructions .ROUTE .COMPLEX Qty: 180 3RF Hold Instructions: Resume on 04/27/21. Dose Instruction: TAKE 1 TABLET TWICE DAILY Rx Instructions: TAKE 1 TABLET TWICE DAILY Lantus U-100 Insulin 100 unit/mL solution See Rx Instructions .ROUTE .COMPLEX Qty: 30 11RF Dose Instruction: INJECT 35 UNITS SUBCUTANEOUSLY EVERY MORNING (DISCARD VIAL 28 DAYS AFTER OPENING) Rx Instructions: INJECT 35 UNITS SUBCUTANEOUSLY EVERY MORNING (DISCARD VIAL 28 DAYS AFTER OPENING) levothyroxine 100 mcg tablet 100 mcg PO DAILY Qty: 90 3RF carvedilol 25 mg tablet See Rx Instructions .ROUTE .COMPLEX Qty: 90 10RF Dose Instruction: TAKE 1/2 TABLET (12.5 MG)TWICE DAILY Rx Instructions: TAKE 1/2 TABLET (12.5 MG)TWICE DAILY atorvastatin 20 mg tablet See Rx Instructions .ROUTE .COMPLEX Qty: 90 3RF Dose Instruction: TAKE 1 TABLET EVERY DAY Rx Instructions: TAKE 1 TABLET EVERY DAY aspirin 81 mg Tablet,Delayed Release (Dr/Ec) 81 mg PO DAILY nitroglycerin 0.4 mg Tablet, Sublingual 0.4 mg SUBLINGUAL Q5M PRN (Reason: Chest Pain) Referrals: Hector Eller MD [Primary Care Provider] - Patient Instructions: Altered Mental Status (ED) Coding Level of Care Code ED Talk Show Host for Jama James
[2023-07-24 16:11] LABS: Glucose Point of Care 75 mg/dL (70-110)
[2023-07-24 16:56] LABS: Basophils # 0.1 10^3/uL (0.0-0.1); Basophils % 0.4 %; Eosinophils # 0.3 10^3/uL (0.0-0.8); Eosinophils % 1.6 %; Hematocrit 47.5 % (36-47); Lymphocytes # 4.2 10^3/uL (0.8-4.8); Lymphocytes % 25.6 %; Mean Corpuscular HGB Conc 32.6 g/dL (30-55); Mean Corpuscular Hemoglobin 30.3 pg (27-33); Mean Corpuscular Volume 92.8 fl (85-98); Mean Platelet Volume 9.9 fL (7.4-10.4); Monocytes % 6.2 %; Neutrophils # 10.82 10^3/uL (1.8-7.7); Neutrophils % 65.5 %; Nucleated Red Blood Cells % 0 %; Platelet Count 368 10^3/cmm (157-399); Red Blood Count 5.12 10^6/uL (3.85-5.65); Red Cell Distribution Width 13.1 % (12.1-15.1); White Blood Count 16.52 10^3/uL (3.29-11.43)
[2023-07-24 17:24] LABS: Alanine Aminotransferase 14 U/L (0-33); Albumin Level 4.1 g/dL (3.5-5.2); Alkaline Phosphatase 103 U/L (35-105); Aspartate Amino Transferase 19 U/L (0-32); Blood Urea Nitrogen 21 mg/dL (8-23); Calcium 9.8 mg/dL (8.5-10.5); Carbon Dioxide 24 mmol/L (22-29); Chloride 105 mmol/L (98-107); Globulin 3.5 g/dL (1.3-4.6); Glucose 47 mg/dL (65-115); Osmolality Calculated 296 mOsm/kg (285-295); Sodium 143 mmol/L (136-145); Total Bilirubin 0.4 mg/dL (0.15-1.2); Total Protein 7.6 g/dL (6.6-8.7)
[2023-07-24 17:38] LABS: Glucose Point of Care 55 mg/dL (70-110)
[2023-07-24] MEDS: dextrose 50% syringe 50 mL IVP ×2 (17:43→20:32)
[2023-07-24 18:15] LABS: Glucose Point of Care 191 mg/dL (70-110)
--- NOTE | 2023-07-24 18:17 | P.HP_ITS ---
Providers/Chief Complaint 2 Admitting Physician: Cory Cortez MD Primary Care Provider: Hector Eller MD Chief Complaint: hypoglycemia History of Present Illness Pallavi Aguirre is a 82 year old female with a past medical history of diabetes mellitus, typically takes insulin Lantus 30 units at nighttime and short acting insulin 18 units before meals. Patient was driving back today when she started to feel hypoglycemic. Describes symptoms of lightheadedness, sweating. A passerby noticed her to be driving erratically, suspect hypoglycemia and gave glucagon. Upon presentation to the ER her blood sugar was still 50s. She has been started on a dextrose infusion. She is currently awake alert and oriented. Patient reports that for the past 3 days, her blood sugar has been normal range before meals therefore she has not been using any short acting insulin. She has continued to use long-acting insulin at 30 units. Denies any recent changes in her diet. Denies any recent weight loss. She has had increased urinary frequency however this is not unusual for her. No complaints of urinary retention. She has not missed any meals Review of Systems 2 General: Reports: 10 or more systems reviewed and unremarkable except in HPI and below Const: Denies: fever(s), chills, body aches, change in appetite, change in weight, malaise, night sweats, diaphoresis, change in sleep pattern, daytime sleepiness or snoring Eyes: Denies: change in vision, blurry vision, photophobia, eye discomfort or eye discharge ENMT: Denies: throat pain, enlarged tonsils, hoarseness, mouth pain, oral sores, dry mouth, tinnitus, nasal congestion or post nasal drip Card: Denies: chest pain, palpitations, irregular heart rhythm, edema, swelling of feet/ankles, lightheadedness, syncope, pre-syncope, dyspnea on exertion, orthopnea, leg pain with exertion or acrocyanosis Resp: Denies: dyspnea, productive cough, non-productive cough, wheezing, stridor, pain on inspiration, change in phlegm color, hemoptysis or chest congestion GI: Denies: abdominal pain, nausea, vomiting, hematemesis, coffee ground emesis, dysphagia, heartburn, diarrhea, constipation, bloating, GI cramping, change in bowel habits, pain on defecation, hematochezia or melena : Denies: flank pain, dysuria, urinary frequency, urinary urgency, urinary hesitancy, nocturia or hematuria Musc: Denies: neck pain, back pain, extremity pain, joint pain, joint swelling, joint redness, joint stiffness or limited range of motion Neuro: Denies: headache(s), numbness in extremities, weakness in extremities, sensory changes, lack of coordination, difficulty walking, frequent falls, dizziness, vertigo, confusion, Slurred speech present, difficulty communicating thoughts or seizure-like activity Psych: Denies: anxiety, depression, mood swings, panic attacks, hopelessness or irritability Endo: Denies: polyuria, polydipsia, tired all the time, cold intolerance, excessive sweating, flushing or heat intolerance Alex/Lymph: Denies: easy bruising or easy bleeding All/Imm: Denies: tongue swelling, facial swelling or acute wheezing Medications/Allergies Home Medications Medication Instructions Recorded Confirmed Last Taken Type aspirin 81 mg tablet,delayed 81 mg PO DAILY 07/22/19 07/24/23 07/24/23 History release nitroglycerin 0.4 mg sublingual 0.4 mg sublingual Q5M PRN Chest 07/22/19 07/24/23 Unknown History tablet Pain losartan 25 mg tablet 25 mg PO DAILY 12/18/20 07/24/23 07/24/23 History insulin aspart U-100 100 unit/mL 20 unit (0.2 mL) SUBCUT TID #15 mL 06/17/22 07/24/23 1 Day Ago Rx (3 mL) subcutaneous pen (Novolog ~07/23/23 FlexPen U-100 Insulin aspart) magnesium oxide 400 mg PO DAILY #90 tabs 12/02/22 07/24/23 07/24/23 Rx furosemide 40 mg tablet 40 mg PO DAILY 05/01/23 07/24/23 07/24/23 History atorvastatin 20 mg tablet 20 mg PO DAILY 07/24/23 07/24/23 07/24/23 History carvedilol 25 mg tablet 12.5 mg PO BID 07/24/23 07/24/23 07/24/23 History clopidogrel 75 mg tablet (Plavix) 75 mg PO DAILY 07/24/23 07/24/23 07/24/23 History insulin glargine 100 unit/mL 35 unit SUBCUT DAILY 07/24/23 07/24/23 1 Day Ago History subcutaneous solution (Lantus ~07/23/23 U-100 Insulin) levothyroxine 88 mcg tablet 88 mcg PO QAM 07/24/23 07/24/23 07/24/23 History metformin 1,000 mg tablet 1,000 mg PO BID 07/24/23 07/24/23 07/24/23 History spironolactone 25 mg tablet 12.5 mg PO DAILY 07/24/23 07/24/23 07/24/23 History Allergies Allergy/AdvReac Type Severity Reaction Status Date / Time codeine AdvReac ADR-Gastrointestinal Verified 07/24/23 21:06 Upset PFSH Acute 2 PFSH: Medical History Hx-TIA (transient ischemic attack) History of malignant melanoma Fracture of proximal end of right humerus Encounter for Postoperative Care Congestive heart failure Hypothyroidism (acquired) Hyperlipidemia Hypertension Diabetes mellitus type 2 in nonobese Coronary artery disease CABG x3 and 2006. No history of IN with this. Multiple sclerosis Diagnosed since 1988. No treatment. Has chronic right leg numbness Family History Other Diabetes Stroke Social History Smoking and tobacco/nicotine status: never used tobacco/nicotine Alcohol intake: never Substance/Drug Use: never Vitals/I&O/Wt Last Vital Signs Temp 97.5 F L 07/24/23 16:00 Pulse 71 07/24/23 17:30 Resp 22 H 07/24/23 17:30 BP 198/95 07/24/23 17:30 Pulse Ox 90 07/24/23 17:30 O2 Del Method Room Air 07/24/23 16:25 Weight last 48 hrs Weight 81.647 kg Physical Exam 2 Narrative: EXAM NARRATIVE: General: No acute distress, AO x3 HEENT: PERRLA, pupils bilaterally equal and reactive Chest:equal good air entry bilaterally CVS: S1-S2 regular, no murmurs, no tachycardia, no gallops, no rubs Abdomen: Soft, nontender, no organomegaly, bowel sounds present Neuro: No focal deficits, no facial deformity, AO x3, power 5/5 in all limbs Data 07/25/23 06:37 07/25/23 06:37 A&P Assessment and plan (1) Hypoglycemia: Likely related to insulin use. Patient's last HbA1c in April was at 6.6, new HbA1c has been ordered today. Patient states she has been on the same dose of insulin for over 10 years, has not recently been readjusted Patient states noticing lower blood sugars over the past 3 days and has kept her short acting insulin. Continued to take long-acting insulin. There have been no recent changes in her diet, no missed meals. Upon arrival blood sugar was in the 50s. Currently on D5 normal saline infusion at 75 cc an hour, blood sugars currently maintained on this infusion. Hold all insulin products Will likely need adjustment in her dosing based on her new A1c. (2) Diabetes mellitus type 2 in nonobese: (3) UTI (urinary tract infection): Increased urinary frequency and dysuria. UA with positive leukocyte esterase and nitrate. Start ceftriaxone 1 g IV every 24 hours empirically Await urine culture Qualifiers: Hematuria presence: with hematuria Urinary tract infection type: acute cystitis Qualified Code(s): N30.01 - Acute cystitis with hematuria Plan full code regular diet Attestations 2 Medical Necessity Statement*: Less than 2 midnight stay is currently anticipated Diagnoses Hypoglycemia E16.2 Diabetes mellitus type 2 in nonobese E11.9 Acute cystitis with hematuria N30.01 Hematuria presence: with hematuria Urinary tract infection type: acute cystitis
[2023-07-24 19:02] LABS: Procalcitonin 0.02 ng/mL (0-0.5); Thyroid Stimulating Hormone 0.89 uIU/mL (0.27-4.20)
[2023-07-24 19:13] LABS: Iron 62 ug/dL (37-145); Percent Saturation 19.6 % (20-50); Total Iron Binding Capacity 316 mcg/dl; Unsaturated Iron Binding 254 ug/dL (112-347)
[2023-07-24 20:14] LABS: Glucose Point of Care 60 mg/dL (70-110)
[2023-07-24] MEDS: dextrose 5%-sod chloride 0.9% 1,000 ML 75 ML IV (20:32)
--- NOTE | 2023-07-24 21:47 | PC.NURSE ---
Suction Plate Carrier Cleaner with left hand stronger than order management specialist with right hand. Patient states this hand is weak because it has MS in it.
[2023-07-24 21:56] LABS: Glucose Point of Care 166 mg/dL (70-110)
[2023-07-24 22:00] LABS: Glucose Urine UA Trace (Normal); Ketones Urine Negative (Negative); Protein Urine Trace (Negative); Urine Appearance Cloudy (CLEAR); Urine Color Yellow (Yellow); pH Urine 5 (5-7)
[2023-07-24 22:01] LABS: Add Urine Microscopic? YES; Bilirubin Urine Neg (Negative); Blood Urine 2+ (Negative); Leukocyte Esterase Urine 2+ (Negative); Nitrate Urine Negative (Negative); Urobilinogen Urine Neg (Negative)
[2023-07-24 22:02] LABS: Add Urine Culture? Yes; Bacteria Urine 3+ /hpf; Squamous Epithelial Cell Urine 0-4 /hpf (0-5); WBC Urine 40-55 /hpf (0-5)
[2023-07-24 23:58] LABS: Vitamin B12 168 pg/mL (232-1245)
[2023-07-25] VITALS: BP 161/68; PULSE 64; RESP 17; TEMP 36.7; O2SAT 98
[2023-07-25 00:29] LABS: Glucose Point of Care 123 mg/dL (70-110)
--- NOTE | 2023-07-25 00:46 | PC.NURSE ---
Dr. Cortez notified med rec being updated.
[2023-07-25 04:00] VITALS: BP 130/71; PULSE 68; RESP 17; TEMP 36.8; O2SAT 96
[2023-07-25] MEDS: levothyroxine 88 mcg Tablet PO (04:37)
[2023-07-25] MEDS: cefTRIAXone 1,000 MG in sodium chloride 0.9% (plus) 50 ML 100 MG IV (04:37)
[2023-07-25 04:45] LABS: Glucose Point of Care 118 mg/dL (70-110)
[2023-07-25 07:37] LABS: Chol HDL Ratio 3.17 mg/dL (0.0-4.40); Cholesterol 73 mg/dL (0-200); HDL Cholesterol 23 mg/dL (60-100); LDL Cholesterol Calculated 26 mg/dL (50-129); Magnesium 1.7 mg/dL (1.7-2.3); Triglycerides 120 mg/dL (0-150); VLDL Cholestrol Calculation 24 mg/dL (0-30)
[2023-07-25 07:43] LABS: Estmated Average Glucose 123; Hemoglobin A1C 5.9 % (4.0-6.0)
[2023-07-25 07:49] LABS: Folate Level 7.6 ng/mL (4.8-37.3)
[2023-07-25 08:00] VITALS: BP 148/74; PULSE 97; RESP 14; TEMP 36.4; O2SAT 91
[2023-07-25] MEDS: clopidogrel 75 mg Tablet PO (08:57)
[2023-07-25] MEDS: atorvastatin 40 mg Tablet 20 MG PO (08:58)
[2023-07-25] MEDS: aspirin 81 mg EC Tablet PO (08:58)
[2023-07-25 09:09] LABS: Glucose Point of Care 169 mg/dL (70-110)
--- NOTE | 2023-07-25 09:29 | PC.CHAP ---
Pastoral Care Encounter/Spiritual Assessment Type of Contact [] Declined equipment oiler visit [] Patient/Family/Request visit [] Outpatient visit [] Follow-up visit [] Physician referral [] Code/Alert [x] Routine visit [] Staff referral [] Actively dying [] Patient sleeping [x] Family support [] [] Out of room [] Palliative care [] [] Receiving care in room [] Pre-surgical visit [] Trauma [] Long length of stay [] ICU visit [] Other: Relational/Emotional Strength [x] Patient feels connected with others/family/visitors/staff [] Distress [] Loneliness/isolation [] Abandonment Spirituality of Patient [x] Person of Saba [] Attends Orthodoxy of their Saba [x] Believes in Prayer [] Reads Bible or Buddhist materials [] There are Spiritual issues to be addressed Consultants Intern Interventions [x] Prayer [x] Active listening [] Non-anxious presence [x] Spiritual/emotional support [] Crisis/trauma care [] Spiritual counseling [] Bereavement support [] Provided bereavement packet [] Provided Bible/devotional materials [] Provided toy/stuffed animal, coloring book to patient or family member [] Provided Communion [] Anointing/[place] [] Salvation [x] Completed spiritual assessment [] Other: Impact on Illness or Injury [] Angry [] Fearful [] Anxious [] Often cries [] Exhaustion [] Unable to work [] Unable to attend scientology [] Unable to walk/stand [] Unable to read [] Unable to drive [] Unable to eat/drink [] Unable to sleep [] Unable to be with family [] Patient intubated [] Other: Summary Time spent with patient 5 min
[2023-07-25] MEDS: carvedilol 25 mg Tablet 12.5 MG PO (10:06)
[2023-07-25] MEDS: cyanocobalamin 1,000 mcg/mL SDV 1000 MCG IM (10:06)
[2023-07-25 10:08] LABS: Basophils # 0.1 10^3/uL (0.0-0.1); Basophils % 0.5 %; Eosinophils # 0.2 10^3/uL (0.0-0.8); Eosinophils % 1.5 %; Hematocrit 43.4 % (36-47); Lymphocytes # 2.7 10^3/uL (0.8-4.8); Lymphocytes % 24.8 %; Mean Corpuscular HGB Conc 31.8 g/dL (30-55); Mean Corpuscular Hemoglobin 30.1 pg (27-33); Mean Corpuscular Volume 94.8 fl (85-98); Mean Platelet Volume 9.9 fL (7.4-10.4); Monocytes # 0.9 10^3/uL (0.2-0.9); Monocytes % 8.3 %; Neutrophils # 7.06 10^3/uL (1.8-7.7); Neutrophils % 64.4 %; Nucleated Red Blood Cells % 0 %; Platelet Count 295 10^3/cmm (157-399); Red Blood Count 4.58 10^6/uL (3.85-5.65); Red Cell Distribution Width 13.2 % (12.1-15.1); White Blood Count 10.96 10^3/uL (3.29-11.43)
[2023-07-25 10:21] LABS: Alanine Aminotransferase 12 U/L (0-33); Albumin Level 3.4 g/dL (3.5-5.2); Alkaline Phosphatase 85 U/L (35-105); Aspartate Amino Transferase 17 U/L (0-32); Blood Urea Nitrogen 17 mg/dL (8-23); Calcium 8.7 mg/dL (8.5-10.5); Carbon Dioxide 20 mmol/L (22-29); Chloride 108 mmol/L (98-107); Globulin 2.9 g/dL (1.3-4.6); Glucose 144 mg/dL (65-115); Osmolality Calculated 294 mOsm/kg (285-295); Sodium 140 mmol/L (136-145); Total Bilirubin 0.4 mg/dL (0.15-1.2); Total Protein 6.3 g/dL (6.6-8.7)
--- NOTE | 2023-07-25 11:12 | P.DS_ITS ---
Discharge Providers Date of Admission: 07/24/23 17:50 Date of Discharge: July 25, 2023 Attending Provider at Admission: Cory Cortez MD Attending Provider at Discharge: Cory Cortez MD Primary Care Provider: Hector Eller MD Diagnoses at Discharge Discharge Diagnosis (1) Hypoglycemia: Status: Acute (2) Diabetes mellitus type 2 in nonobese: Status: Acute (3) UTI (urinary tract infection): Status: Acute Qualifiers: Hematuria presence: with hematuria Urinary tract infection type: acute cystitis Qualified Code(s): N30.01 - Acute cystitis with hematuria Reason for Visit Reason for Visit: hypoglycemia Hospital Course Hospital Course Pallavi Aguirre is a 82 year old female with a past medical history of diabetes mellitus, typically takes insulin Lantus 30 units at nighttime and short acting insulin 18 units before meals. Patient was driving back today when she started to feel hypoglycemic. Describes symptoms of lightheadedness, sweating. A passerby noticed her to be driving erratically, suspect hypoglycemia and gave glucagon. Upon presentation to the ER her blood sugar was still 50s. She has been started on a dextrose infusion. She is currently awake alert and oriented. Patient reports that for the past 3 days, her blood sugar has been normal range before meals therefore she has not been using any short acting insulin. She has continued to use long-acting insulin at 30 units. Denies any recent changes in her diet. Denies any recent weight loss. She has had increased urinary frequency however this is not unusual for her. No complaints of urinary retention. She has not missed any meals Patient was admitted to the hospital further evaluation and management of persistent hypoglycemia. It seems her blood sugars have been trending down for the last few months. A1c was checked and was found to be 5.9. She was started on D5 NS IV hydration after which her blood sugars remained stable. Her blood sugars remained stable after stopping the fluid for around 6 hours. During hospitalization she remained hemodynamically stable and afebrile though blood cultures have been sent out. UA is concerning for possible UTI and urine culture is pending. Patient does give history of dysuria on and off for last 1 month. For hypoglycemia options of switching over to oral medications versus continuing insulin as per sliding scale discussed in detail with the patient and she wanted to continue the insulin. She has been discharged in hemodynamically stable condition with advised to hold off on losartan for now. Continue taking her Coreg as before. She is also advised to stop her long-acting insulin/Lantus and her dose of Humalog has been changed to as per insulin sliding scale premeals. She has been told that her target blood sugar should be between 1 20-1 40. She is to take Levaquin 500 mg daily for next 7 days. Urine culture and blood culture to be followed up in the hospital and if any changes patient will be informed accordingly. Physical Exam Narrative: EXAM NARRATIVE: General: No acute distress, AO x3 HEENT: PERRLA, pupils bilaterally equal and reactive Chest:equal good air entry bilaterally CVS: S1-S2 regular, no murmurs, no tachycardia, no gallops, no rubs Abdomen: Soft, nontender, no organomegaly, bowel sounds present Neuro: No focal deficits, no facial deformity, AO x3, power 5/5 in all limbs Discharge Data Studies Completed and Pending Pending at discharge Category Date Time Status Bacterial Antigen Stat Lab 07/24/23 18:15 Ordered Blood Cultures ([facility]) Routine Lab 07/24/23 19:46 Received Blood Cultures ([facility]) Routine Lab 07/24/23 19:50 Received MAG [Magnesium] AM LABS Lab 07/26/23 04:00 Ordered MAG [Magnesium] AM LABS Lab 07/27/23 04:00 Ordered Urine Culture Routine Lab 07/24/23 21:30 Received Laboratory Results WBC 10.96 10^3/uL (3.29-11.43) 07/25/23 06:37 RBC 4.58 10^6/uL (3.85-5.65) 07/25/23 06:37 Hgb 13.80 g/dL (11.27-16.99) 07/25/23 06:37 Hct 43.4 % (36-47) 07/25/23 06:37 MCV 94.8 fl (85-98) 07/25/23 06:37 MCH 30.1 pg (27-33) 07/25/23 06:37 MCHC 31.8 g/dL (30-55) 07/25/23 06:37 RDW 13.2 % (12.1-15.1) 07/25/23 06:37 Plt Count 295 10^3/cmm (157-399) 07/25/23 06:37 MPV 9.9 fL (7.4-10.4) 07/25/23 06:37 Neut % (Auto) 64.4 % 07/25/23 06:37 Lymph % (Auto) 24.8 % 07/25/23 06:37 [place] % (Auto) 8.3 % 07/25/23 06:37 Eos % (Auto) 1.5 % 07/25/23 06:37 Baso % (Auto) 0.5 % 07/25/23 06:37 Neut # (Auto) 7.06 10^3/uL (1.8-7.7) 07/25/23 06:37 Lymph # (Auto) 2.7 10^3/uL (0.8-4.8) 07/25/23 06:37 [place] # (Auto) 0.9 10^3/uL (0.2-0.9) 07/25/23 06:37 Eos # (Auto) 0.2 10^3/uL (0.0-0.8) 07/25/23 06:37 Baso # (Auto) 0.1 10^3/uL (0.0-0.1) 07/25/23 06:37 Nucleated RBC % (auto) 0 % 07/25/23 06:37 Nucleated RBCs # 0.0 /100WBC 07/25/23 06:37 Sodium 140 mmol/L (136-145) 07/25/23 06:37 Potassium 4.0 mmol/L (3.5-5.1) 07/25/23 06:37 Chloride 108 mmol/L (98-107) H 07/25/23 06:37 Carbon Dioxide 20 mmol/L (22-29) L 07/25/23 06:37 Anion Gap 16.0 (5-19) 07/25/23 06:37 BUN 17 mg/dL (8-23) 07/25/23 06:37 Creatinine 1.0 mg/dL (0.5-0.9) H 07/25/23 06:37 GFR Calculation Not Reportable 07/25/23 06:37 Glucose 144 mg/dL (65-115) H 07/25/23 06:37 POC Glucose 169 mg/dL (70-110) H 07/25/23 09:04 Estimat Average Glucose 123 07/25/23 06:37 Hemoglobin A1c 5.9 % (4.0-6.0) 07/25/23 06:37 Calculated Osmolality 294 mOsm/kg (285-295) 07/25/23 06:37 Calcium 8.7 mg/dL (8.5-10.5) 07/25/23 06:37 Magnesium 1.7 mg/dL (1.7-2.3) 07/25/23 06:37 Iron 62 ug/dL (37-145) 07/24/23 15:40 TIBC 316 mcg/dl 07/24/23 15:40 % Saturation 19.6 % (20-50) L 07/24/23 15:40 Unsat Iron Binding 254 ug/dL (112-347) 07/24/23 15:40 Total Bilirubin 0.4 mg/dL (0.15-1.2) 07/25/23 06:37 AST 17 U/L (0-32) 07/25/23 06:37 ALT 12 U/L (0-33) 07/25/23 06:37 Alkaline Phosphatase 85 U/L (35-105) 07/25/23 06:37 Total Protein 6.3 g/dL (6.6-8.7) L 07/25/23 06:37 Albumin 3.4 g/dL (3.5-5.2) L 07/25/23 06:37 Globulin 2.9 g/dL (1.3-4.6) 07/25/23 06:37 Triglycerides 120 mg/dL (0-150) 07/25/23 06:37 Cholesterol 73 mg/dL (0-200) 07/25/23 06:37 LDL Cholesterol, Calc 26 mg/dL (50-129) L 07/25/23 06:37 Total VLDL Cholesterol 24 mg/dL (0-30) 07/25/23 06:37 HDL Cholesterol 23 mg/dL (60-100) L 07/25/23 06:37 Cholesterol/HDL Ratio 3.17 mg/dL (0.0-4.40) 07/25/23 06:37 Vitamin B12 168 pg/mL (232-1245) L 07/24/23 15:40 Folate 7.6 ng/mL (4.8-37.3) 07/25/23 06:37 Procalcitonin 0.02 ng/mL (0-0.5) 07/24/23 15:40 TSH 0.89 uIU/mL (0.27-4.20) 07/24/23 15:40 Urine Color Yellow (Yellow) 07/24/23 21:30 Urine Appearance Cloudy (CLEAR) A 07/24/23 21:30 Urine pH 5 (5-7) 07/24/23 21:30 Ur Specific [place] 1.010 (1.005-1.030) 07/24/23 21:30 Urine Protein Trace (Negative) 07/24/23 21:30 Urine Glucose (UA) Trace (Normal) H 07/24/23 21:30 Urine Ketones Negative (Negative) 07/24/23 21: Urine Blood 2+ (Negative) H 07/24/23 21: Urine Nitrate Negative (Negative) 07/24/23 21: Urine Bilirubin Neg (Negative) 07/24/23 21: Urine Urobilinogen Neg mg/dL (Negative) 07/24/23 21:30 Ur Leukocyte Esterase 2+ (Negative) H 07/24/23 21:30 Urine RBC 5-10 /hpf (0-2) H 07/24/23 21:30 Urine WBC 40-55 /hpf (0-5) H 07/24/23 21:30 Ur Squamous Epith Cells 0-4 /hpf (0-5) H 07/24/23 21: Amorphous Sediment Not Reportable 07/24/23 21: Urine Bacteria 3+ /hpf (NONE) H 07/24/23 21:30 Vitals Last Vital Signs Temp 97.5 F L 07/25/23 08:00 Pulse 97 07/25/23 08:00 Resp 14 07/25/23 08:00 BP 148/74 07/25/23 08:00 Pulse Ox 91 07/25/23 08:00 O2 Del Method Room Air 07/25/23 08:00 Discharge Plan Discharge Patient Disposition: Home Condition: Stable Prescriptions: New levofloxacin 500 mg tablet 500 mg PO Q24H 7 Days Qty: 7 0RF Continued furosemide 40 mg tablet 40 mg PO DAILY magnesium oxide 400 mg magnesium tablet 400 mg PO DAILY Qty: 90 2RF aspirin 81 mg Tablet,Delayed Release (Dr/Ec) 81 mg PO DAILY nitroglycerin 0.4 mg Tablet, Sublingual 0.4 mg SUBLINGUAL Q5M PRN (Reason: Chest Pain) atorvastatin 20 mg Tablet 20 mg PO DAILY Plavix 75 mg Tablet 75 mg PO DAILY levothyroxine 88 mcg Tablet 88 mcg PO QAM carvedilol 25 mg tablet 12.5 mg PO BID Changed Novolog FlexPen U-100 Insulin 100 unit/mL (3 mL) insulin pen See Protocol SUBCUT TID Qty: 15 11RF Protocol: Insulin Corrective High-Dose Regimen Condition: Fingerstick Blood Glucose Dose/Route: Insulin Units Condition: 141-180 mg/dl Dose/Route: 2 units/SQ Condition: 181-220 mg/dl Dose/Route: 4 units/SQ Condition: 221-260 mg/dl Dose/Route: 6 units/SQ Condition: 261-300 mg/dl Dose/Route: 8 units/SQ Condition: 301-350 mg/dl Dose/Route: 10 units/SQ Condition: 351-400 mg/dl Dose/Route: 12 units/SQ Condition: greater than 400 mg/dl Dose/Route: 14 units/SQ Protocol Text: If 141-180 mg/dl- 2 units/SQ; 181-220 mg/dl- 4 units/SQ; 221-260 mg/dl- 6 units/SQ; 261-300 mg/dl,- 8 units/SQ; 301-350 mg/dl,-10 units/SQ; 351-400 mg/dl,-12 units/SQ; If greater than 400 mg/dl, then 14 units/SQ Held losartan 25 mg tablet 25 mg PO DAILY Hold Instructions: Resume on 08/08/23. Discontinued insulin glargine [Lantus U-100 Insulin] 100 unit/mL solution 35 unit SUBCUT DAILY spironolactone 25 mg tablet 12.5 mg PO DAILY metformin 1,000 mg tablet 1,000 mg PO BID Discharge Orders: Discharge Order (Routine); Ordered 07/25/23 Ordered By: Cory Cortez Referrals: Hector Eller MD [Primary Care Provider] - 7-10 days Discharge Diet: Regular and Diabetic Patient Instructions: Levofloxacin (By mouth), Urinary Tract Infection in Women (GEN), Hypoglycemia in a Person with Diabetes (DC), Meal Planning with Diabetes Exchanges (DC), Altered Mental Status (ED), What to Do if Your Blood Sugar is Low (DC), Opioid Safety Activity Restrictions/Additional Instructions: Target blood sugar between 1 20-1 40. Do not take Lantus anymore. Continue taking Humalog premeals. Check your blood sugar before each meal and take insulin as per the sliding scale. Sliding scale placed as below. If 141-180 mg/dl- 2 units/SQ; 181-220 mg/dl- 4 units/SQ; 221-260 mg/dl- 6 units/SQ; 261-300 mg/dl,- 8 units/SQ; 301-350 mg/dl,-10 units/SQ; 351-400 mg/dl,-12 units/SQ; If greater than 400 mg/dl, then 14 units/SQ Do not take losartan for now. Continue taking Coreg as before. Please check your blood sugar and blood pressure daily at home and maintain a diary and follow-up with a primary care provider within next 10 days for further adjustment of medications. Take Levaquin 500 mg daily for next 7 days Discharge Attestations Time Spent in Discharge Care*: greater than 30 min Specific Discharge Activities: educating patient, educating and/or supporting family/caregiver, discussing with pcp/other providers, discussing with disease case manager rn/social workers/dc planners, documenting/other paperwork and evaluating patient/reviewing data Status at Discharge: Cognitive status at discharge: cognitively intact , Behavioral status at discharge: cooperative , Functional status at discharge: independent ambulation , Overall status at discharge: patient is back to baseline Quality Metrics Clinical Quality Measures [ No reported AMI, CVA or VTE this stay] Coding Level of Care Code 04292 Total time (in minutes) for Discharge: 60 Diagnoses Hypoglycemia E16.2 Diabetes mellitus type 2 in nonobese E11.9 Acute cystitis with hematuria N30.01 Hematuria presence: with hematuria Urinary tract infection type: acute cystitis
[2023-07-25 12:00] VITALS: BP 131/79; PULSE 82; RESP 16; TEMP 36.7; O2SAT 92
[2023-07-25 12:22] LABS: Glucose Point of Care 141 mg/dL (70-110)
[2023-07-25 15:25] LABS: Glucose Point of Care 172 mg/dL (70-110)
[2023-07-25 15:43] VITALS: BP 131/79; PULSE 82; RESP 16; TEMP 36.7; O2SAT 92
--- NOTE | 2023-07-25 15:53 | PC.NURSE ---
Discharge Note Patient discharged to home via private vehicle accompanied by daughter. Discharge instructions reviewed with patient and/or customer assistance representative. Mobile pharmacy medications and/or prescriptions provided. Belongings/home medications returned.
== END 2023-07-25 15:54 | disposition home or self-care (01) ==
LOC: ER 17:56 → MEDSURG 19:55
PROVIDERS: Admitting Provider Student in an Organized Health Care Education/Training Program; Emergency Provider Family Medicine; PCP Family Medicine; Visit Provider Student in an Organized Health Care Education/Training Program
DX: E11.649 Type 2 diabetes mellitus with hypoglycemia without coma (principal); N30.01 Acute cystitis with hematuria; Z79.4 Long term (current) use of insulin; Z79.84 Long term (current) use of oral hypoglycemic drugs; Z86.73 Personal history of transient ischemic attack (TIA), and cerebral infarction without residual deficits; I11.0 Hypertensive heart disease with heart failure; I50.9 Heart failure, unspecified; E03.9 Hypothyroidism, unspecified; E78.5 Hyperlipidemia, unspecified; I25.10 Atherosclerotic heart disease of native coronary artery without angina pectoris; Z95.1 Presence of aortocoronary bypass graft; I05.0 Rheumatic mitral stenosis; E11.69 Type 2 diabetes mellitus with other specified complication; E66.9 Obesity, unspecified; Z68.34 Body mass index [BMI] 34.0-34.9, adult
CPT/HCPCS: 36415; 36416; 80053; 80061; 81001; 82607; 82746; 82962; 83036; 83540; 83550; 83735; 84145; 84443; 85025; 86403; 87040; 87086; 96365; 96366; 96372; 99285; G0378; J0696; J3420; J7042

== ENCOUNTER → 2023-09-03 11:34 | Outpatient (BNVA) | payer MEDICARE, OTHER, SELFPAY | PROVIDERS: PCP Family Medicine; Visit Provider Family Medicine | DX: N39.0 Urinary tract infection, site not specified (principal) | CPT/HCPCS: 81000; 87086 ==

== ENCOUNTER 2023-09-10 08:37 | Outpatient (CLI) | payer MEDICARE, OTHER, SELFPAY ==
[2023-09-10] MEDS: iohexol 350 mg/mL 500 mL Btl (per mL) IV (09:27)
--- NOTE | 2023-09-10 09:30 | CT_ITS ---
WS: [id number] CT HEAD WITH AND WITHOUT CONTRAST HISTORY: TIA TECHNIQUE: Noncontrast 2.5 mm axial images obtained from the vertex to the skull base. Additional betzaida ging performed at 2.5 mm axial images status post IV contrast. Bone and soft tissue windows are revie wed. All CT scans at [facility] use at least one of these dose optimization techniques: autom ated exposure control; mA and/or kV adjustment per patient size (includes targeted exams where dose i s matched to clinical indication); or iterative reconstruction. CONTRAST: Omnipaque 350; 100 mL IV. DLP: 2057.15 mGy.cm COMPARISON: 07/22/2019 No acute intracranial hemorrhage, edema or midline shift. Moderate cortical atrophy and small vessel ischemic disease. Confluent small vessel ischemic changes throughout the white matter. Mild bilateral cerebellar atrophy. No enhancing mass or midline shift. N o mass effect. Dural venous sinuses are normally enhancing. Dense calcification in the distal vertebral arteries, LEFT greater than RIGHT and also through the ca vernous carotid sinuses. Irregularity involving the middle cerebral arteries from atherosclerotic dis ease. No aneurysms. Paranasal sinuses as visualized: Mucoperiosteal thickening RIGHT maxillary sinus. No air-fluid levels . Mastoid air cells: Clear. Calvarium and scalp: Intact. IMPRESSION: 1. No acute intracranial hemorrhage or edema. 2. Advanced small vessel ischemic disease similar to the prior study. No enhancing masses or vascula r malformation. 3. Advanced atherosclerotic plaque in the distal vertebral and the intracranial carotid arteries. Mi ld atherosclerotic disease in the middle cerebral arteries.
== END 2023-09-10 08:38 | disposition home or self-care (01) ==
LOC: RAD 08:38
PROVIDERS: PCP Family Medicine; Visit Provider Family Medicine
DX: G45.9 Transient cerebral ischemic attack, unspecified (principal)
CPT/HCPCS: 70470; Q9967

== ENCOUNTER 2023-09-22 10:33 | Outpatient (CLI) | payer MEDICARE, OTHER, SELFPAY ==
--- NOTE | 2023-09-22 11:00 | CT_ITS ---
WS: [id number] CT ABDOMEN AND PELVIS WITH CONTRAST HISTORY: persistent abdominal pain TECHNIQUE: Imaging performed of the abdomen and pelvis with IV contrast. Single phase imaging of the abdomen. Coronal and sagittal reformats are submitted. All CT scans at [facility] use at [address] one of these dose optimization techniques: automated exposure control; mA and/or kV adjustment per patient size (includes targeted exams where dose is matched to clinical indication); or iterative re construction. IV CONTRAST: Omnipaque 350; 100 mL IV. Oral contrast: Yes. DLP: 580.80 mGy.cm COMPARISON: 05/18/2019 Lower thorax: Lung bases are clear. Heart is normal size. Small hiatal hernia. Small amount of oral c ontrast remains in the distal esophagus. Liver/biliary system: Normal size with no intrahepatic dilatation. Gallbladder: Status post cholecystectomy. Pancreas: Normal size pancreas and pancreatic duct. No adjacent inflammation. Spleen: Normal size spleen. No mass or infarct. Adrenal glands: Normal. Right kidney: Mild diffuse cortical thinning. Moderate hydroureteronephrosis. Ureter is dilated to th e urinary bladder. Left kidney: Mild diffuse cortical thinning. Moderate hydroureteronephrosis. Ureter is dilated to the urinary bladder. Ureter is tortuous and elongated from chronic obstruction. Aorta: Moderate atherosclerosis with no aneurysm. Lymphadenopathy: None. Free fluid: None. GI tract: Stomach is well distended with oral contrast. No small bowel obstruction. Prior appendectom y. Mild distal diverticulosis without acute diverticulitis. Abdominal wall: Supraumbilical abdominal wall hernia to the LEFT of midline contains small portion of the transverse colon. There is no obstructive pattern. Pelvis: Urinary bladder is markedly distended extending over a length of 13.6 cm. There is diffuse bl adder wall thickening. Both ureters as a into the urinary bladder are tortuous. Prior hysterectomy. Bones: Unremarkable. IMPRESSION: 1. Interval development of moderate bilateral hydroureteronephrosis since 05/18/2019. Ureters are mar kedly dilated to the urinary bladder. No obstructing calcification or mass identified. The urinary bl adder is also overly distended. If the urinary bladder was decompressed the kidneys and ureters may a lso decompress. Urinary bladder catheter may be necessary to decompress the bladder. 2. Vessel colonic diverticulosis without acute diverticulitis. 3. Supraumbilical LEFT abdominal wall hernia containing a small portion of transverse colon with no obstruction. 4. Moderate atherosclerosis aorta. 5. Prior hysterectomy and appendectomy.
[2023-09-22] MEDS: iohexol 350 mg/mL 500 mL Btl (per mL) PO (11:47)
[2023-09-22 11:55] LABS: Blood Urea Nitrogen 15 mg/dL (8-23)
[2023-09-22] MEDS: iohexol 350 mg/mL 500 mL Btl (per mL) IV (12:01)
== END 2023-09-22 10:34 | disposition home or self-care (01) ==
LOC: RAD 10:34
PROVIDERS: PCP Family Medicine; Visit Provider Family Medicine
DX: N13.30 Unspecified hydronephrosis (principal); N28.82 Megaloureter; K57.30 Diverticulosis of large intestine without perforation or abscess without bleeding; K43.9 Ventral hernia without obstruction or gangrene; I70.0 Atherosclerosis of aorta; Z90.710 Acquired absence of both cervix and uterus
CPT/HCPCS: 74177; 82565; 84520; Q9967

== ENCOUNTER → 2023-10-01 14:03 | Outpatient (BNVA) | payer MEDICARE, OTHER, SELFPAY | PROVIDERS: PCP Family Medicine; Visit Provider Family Medicine | DX: R33.9 Retention of urine, unspecified (principal); N30.01 Acute cystitis with hematuria | CPT/HCPCS: 81000; 87086; 87106 ==

== ENCOUNTER → 2023-10-30 12:51 | Outpatient (BNVA) | payer MEDICARE, OTHER, SELFPAY | PROVIDERS: PCP Family Medicine; Visit Provider Internal Medicine Cardiovascular Disease | DX: I25.119 Atherosclerotic heart disease of native coronary artery with unspecified angina pectoris (principal); E78.5 Hyperlipidemia, unspecified; I11.0 Hypertensive heart disease with heart failure; I50.32 Chronic diastolic (congestive) heart failure; E11.9 Type 2 diabetes mellitus without complications; Z79.4 Long term (current) use of insulin; Z86.73 Personal history of transient ischemic attack (TIA), and cerebral infarction without residual deficits | CPT/HCPCS: 99214 ==

== ENCOUNTER → 2023-12-02 11:58 | Outpatient (BNVA) | payer MEDICARE, OTHER, SELFPAY | PROVIDERS: PCP Family Medicine; Visit Provider Family Medicine | DX: I10 Essential (primary) hypertension (principal); I25.119 Atherosclerotic heart disease of native coronary artery with unspecified angina pectoris; E11.9 Type 2 diabetes mellitus without complications; E03.9 Hypothyroidism, unspecified; G45.9 Transient cerebral ischemic attack, unspecified; E16.2 Hypoglycemia, unspecified | CPT/HCPCS: 80053; 80061; 83036; 84443; 85025 ==

== ENCOUNTER 2024-02-13 10:44 | Outpatient (CLI) | payer MEDICARE, OTHER, SELFPAY ==
--- NOTE | 2024-02-13 10:49 | XR_ITS ---
WS: [id number] Right knee, AP and lateral views Clinical Data: Right knee pain Comparison: None. Findings: No fractures or dislocations are seen. There is medial joint compartment narrowing with a medial femo ral condyle spur. The posterior patella shows minimal irregularity. The patella is intact. The soft tissues are unremarkable. Vascular calcification is seen. There are surgical clips in the medial subcutaneous tissue adjacent t o the tibial plateau. XR/XR knee RT 1-2V [id number] Impression: Narrowing of the medial joint compartment and irregularity of the posterior rig ht patella. Kellgren-Bravo Classification: grade 2 (minimal): definite osteophytes and p ossible joint space narrowing
== END 2024-02-13 10:45 | disposition home or self-care (01) ==
LOC: RAD 10:46
PROVIDERS: PCP Family Medicine; Visit Provider Family Medicine
DX: M25.861 Other specified joint disorders, right knee (principal); M25.761 Osteophyte, right knee; I70.292 Other atherosclerosis of native arteries of extremities, left leg
CPT/HCPCS: 73560

== ENCOUNTER → 2024-03-16 12:11 | Outpatient (BNVA) | payer MEDICARE, OTHER, SELFPAY | PROVIDERS: PCP Family Medicine; Visit Provider Family Medicine | DX: I10 Essential (primary) hypertension (principal); E11.9 Type 2 diabetes mellitus without complications; E16.2 Hypoglycemia, unspecified; E03.9 Hypothyroidism, unspecified; I63.9 Cerebral infarction, unspecified; G45.9 Transient cerebral ischemic attack, unspecified | CPT/HCPCS: 80053; 80061; 83036; 84443; 85025 ==

== ENCOUNTER 2024-03-29 05:00 | Emergency (ER) | payer MEDICARE, OTHER, SELFPAY ==
[2024-03-29 05:17] VITALS: BP 149/86; PULSE 98; RESP 18; TEMP 37; O2SAT 97; BMI 31.8
[2024-03-29 05:27] VITALS: BP 149/86; PULSE 94; RESP 18; O2SAT 95
--- NOTE | 2024-03-29 05:35 | ED_ITS ---
HPI - Female Genitourinary General: Chief complaint: Urogenital-Female Stated complaint: Catheter does not work Time Seen by Provider: 03/29/24 05:26 History of Present Illness: 83-year-old female with a chronic indwel ling Arrington. She presents with suprapubic pain, and a feeling that her bladder is not draining. She only had 200 cc out since last night. She denies fever or vomiting. Catheter was changed at the beginning of the month last she says. Related Data Home Medications Medication Instructions Recorded Confirmed aspirin 81 mg tablet,delayed 81 mg PO DAILY 07/22/19 03/16/24 release nitroglycerin 0.4 mg sublingual 0.4 mg sublingual Q5M PRN Chest 07/22/19 03/16/24 tablet Pain losartan 25 mg tablet 25 mg PO DAILY 12/18/20 03/16/24 atorvastatin 20 mg tablet 20 mg PO DAILY 07/24/23 03/16/24 clopidogrel 75 mg tablet (Plavix) 75 mg PO DAILY 07/24/23 03/16/24 levothyroxine 88 mcg tablet 88 mcg PO QAM 07/24/23 03/16/24 [id number] tablet tab PO 10/30/23 03/16/24 Previous Rx's Medication Instructions Recorded magnesium oxide 400 mg PO DAILY #90 tabs 12/02/22 furosemide 40 mg tablet 40 mg PO DAILY #30 tabs 07/31/23 glimepiride 2 mg tablet 2 mg PO BID #60 tabs 12/02/23 carvedilol 12.5 mg tablet 12.5 mg PO BID #60 tabs 01/01/24 insulin lispro protamine-lispro See Rx Instructions SUBCUT 01/12/24 100 unit/mL (75-25) subcutaneous .COMPLEX #15 mL pen (Humalog Mix 75-25 KwikPen) gabapentin 100 mg capsule 100 mg PO TID #90 caps 01/29/24 cefdinir 300 mg capsule 300 mg PO BID 7 days #14 caps 03/29/24 Allergies Allergy/AdvReac Type Severity Reaction Status Date / Time codeine AdvReac ADR-Gastrointestinal Verified 03/29/24 05:21 Upset [facility] ED PFS: Medical History Hx-TIA (transient ischemic attack) History of malignant melanoma Fracture of proximal end of right humerus Encounter for Postoperative Care Congestive heart failure Hypothyroidism (acquired) Hyperlipidemia Hypertension Diabetes mellitus type 2 in nonobese Coronary artery disease CABG x3 and 2006. No history of MA with this. Multiple sclerosis Diagnosed since 1988. No treatment. Has chronic right leg numbness Family History Other Diabetes Stroke Social History Smoking and tobacco/nicotine status: unknown if used tobacco/nicotine Alcohol intake: never Substance/Drug Use: never Physical Exam Const: COMMON NORMALS: no acute distress GENERAL APPEARANCE: cooperative and frail appearing (Mildly); not ill appearing HENMT: COMMON NORMALS: normocephalic, atraumatic and Normal external nose present HEAD & SCALP: normocephalic and atraumatic FACE & SINUS: normal facial exam and face symmetric NOSE: Normal external nose present Eye: COMMON NORMALS: Equal, round and reactive pupils present and EOMs intact bilaterally PUPIL: Yes Equal, round and reactive pupils present Neck/C-Spine: GENERAL: Yes trachea midline Chest: CHEST: Yes Symmetrical chest wall rise Resp: COMMON NORMALS: normal respiratory effort, No retractions, No use of accessory muscles and clear to auscultation bilaterally AUSCULTATION: clear to auscultation bilaterally Cardio: COMMON NORMALS: regular rate and regular rhythm RATE: regular rate RHYTHM: regular rhythm GI: COMMON NORMALS: Soft to palpation INSPECTION: Yes abdominal distension PALPATION: Yes Soft to palpation and Yes Tenderness to palpation present (GI) (Suprapubic) Extremity: COMMON NORMALS: no pedal edema Neuro: MOI COMA SCALE: document GCS findings Moi coma scale eye opening: Spontaneous Moi coma scale verbal response: Orientated [place] coma scale motor response: Obey commands [place] coma scale total score: 15 SENSORY EXAM: Yes extremities (intact) Psych: COMMON NORMALS: speech normal SPEECH: Yes normal speech Skin: COMMON NORMALS: no rashes or lesions noted GENERAL SKIN EXAM: no rashes or lesions noted Course Vital Signs: Vital signs: Vital Signs Temperature 98.6 F 03/29/24 05:17 Pulse Rate 78 03/29/24 07:43 Respiratory Rate 18 03/29/24 06:19 Blood Pressure 99/60 03/29/24 07:43 Pulse Oximetry 96 03/29/24 07:43 Oxygen Delivery Me thod Room Air 03/29/24 07:24 MDM - Female Medical Decision Making Suprapubic tenderness, bladder distention on palpation, and evidence of a likely clogged Arrington. Bladder scan reveals 763 mL in the bladder. Arrington replaced with immediate urine return. Lab Data Laboratory Results Urine Color Yellow (Yellow) 03/29/24 06:40 Urine Appearance Cloudy (CLEAR) A 03/29/24 06:40 Urine pH 7 (5-7) 03/29/24 06:40 Ur Specific [place] 1.005 (1.005-1.030) 03/29/24 06:40 Urine Protein 3+ (Negative) H 03/29/24 06:40 Urine Glucose (UA) Norm (Normal) 03/29/24 06:40 Urine Ketones Negative (Negative) 03/29/24 06:40 Urine Blood 3+ (Negative) H 03/29/24 06:40 Urine Nitrate Positive (Negative) A 03/29/24 06:40 Urine Bilirubin Neg (Negative) 03/29/24 06:40 Urine Urobilinogen Neg mg/dL (Negative) 03/29/24 06:40 Ur Leukocyte Esterase 2+ (Negative) H 03/29/24 06:40 Urine RBC >100 /hpf (0-2) H 03/29/24 06:40 Urine WBC Too numerous to cnt /hpf (0-5) H 03/29/24 06:40 Ur Squamous Epith Cells 0-4 /hpf (0-5) H 03/29/24 06:40 Amorphous Sediment Not Reportable 03/29/24 06:17 Urine Bacteria 2+ /hpf (NONE) H 03/29/24 06:40 All radiology interpretation(s) finalized by discharge Discharge Plan Discharge Patient Disposition: Home Clinical Impression: Arrington catheter problem UTI (urinary tract infection) Qualifiers: Urinary tract infection type: acute cystitis Hematuria presence: with hematuria Qualified Code(s): N30.01 - Acute cystitis with hematuria Condition: Stable Prescriptions: New cefdinir 300 mg capsule 300 mg PO BID 7 Days Qty: 14 0RF No Action losartan 25 mg tablet 25 mg PO DAILY Hold Instructions: Resume on 08/08/23. [id number] Tablet PO lidocaine (PF) 20 mg/mL (2 %) solution 20 mg IM ONCE Qty: 1 0RF gabapentin 100 mg capsule 100 mg PO TID Qty: 90 11RF furosemide 40 mg tablet 40 mg PO DAILY Qty: 30 11RF glimepiride 2 mg tablet 2 mg PO BID Qty: 60 11RF carvedilol 12.5 mg tablet 12.5 mg PO BID Qty: 60 11RF Rx Instructions: must administer with a meal/food magnesium oxide 400 mg magnesium tablet 400 mg PO DAILY Qty: 90 2RF insulin lispro protamin-lispro [Humalog Mix 75-25 KwikPen] 100 unit/mL (75-25) insulin pen See Rx Instructions SUBCUT .COMPLEX Qty: 15 11RF Rx Instructions: 35 units in AM; 15 units in PM subcutaneously; aspirin 81 mg Tablet,Delayed Release (Dr/Ec) 81 mg PO DAILY nitroglycerin 0.4 mg Tablet, Sublingual 0.4 mg SUBLINGUAL Q5M PRN (Reason: Chest Pain) atorvastatin 20 mg Tablet 20 mg PO DAILY Plavix 75 mg Tablet 75 mg PO DAILY levothyroxine 88 mcg Tablet 88 mcg PO QAM Discharge Orders: Discharge ED (Routine); Ordered 03/29/24 Ordered By: Cortez Carr Referrals: Hector Eller MD [Primary Care Provider] - 4-7 days Patient Instructions: Arrington Catheter Placement and Care (ED), Opioid Safety, Pain Management Coding Level of Care Code ED Information Systems Architect for Jama James
[2024-03-29 06:19] VITALS: PULSE 83; RESP 18; O2SAT 94
[2024-03-29 06:20] VITALS: BP 140/76
[2024-03-29 06:55] LABS: Bilirubin Urine Neg (Negative); Blood Urine 3+ (Negative); Glucose Urine UA Norm (Normal); Ketones Urine Negative (Negative); Leukocyte Esterase Urine 2+ (Negative); Nitrate Urine Positive (Negative); Protein Urine 3+ (Negative); Specific Gravity, Urine 1.005 (1.005-1.030); Urine Appearance Cloudy (CLEAR); Urine Color Yellow (Yellow); Urobilinogen Urine Neg (Negative); pH Urine 7 (5-7)
[2024-03-29 07:03] LABS: Add Urine Culture? Yes; Bacteria Urine 2+ /hpf; RBC Urine >100 /hpf (0-2); Squamous Epithelial Cell Urine 0-4 /hpf (0-5); WBC Urine TOO NUMEROUS TO CNT /hpf (0-5)
[2024-03-29 07:24] VITALS: BP 132/65; PULSE 78; O2SAT 95
[2024-03-29 07:43] VITALS: BP 99/60; PULSE 78; O2SAT 96
== END 2024-03-29 07:45 | disposition home or self-care (01) ==
PROVIDERS: Emergency Provider Emergency Medicine; PCP Family Medicine
DX: N30.01 Acute cystitis with hematuria (principal); T83.098A Other mechanical complication of other urinary catheter, initial encounter; Z79.02 Long term (current) use of antithrombotics/antiplatelets; Z79.82 Long term (current) use of aspirin; Z79.84 Long term (current) use of oral hypoglycemic drugs; Z79.4 Long term (current) use of insulin; Z86.73 Personal history of transient ischemic attack (TIA), and cerebral infarction without residual deficits; I11.0 Hypertensive heart disease with heart failure; I50.9 Heart failure, unspecified; E78.5 Hyperlipidemia, unspecified; E11.9 Type 2 diabetes mellitus without complications; I25.10 Atherosclerotic heart disease of native coronary artery without angina pectoris; Z95.1 Presence of aortocoronary bypass graft; G35 Multiple sclerosis
CPT/HCPCS: 51798; 81001; 87086; 99283

== ENCOUNTER → 2024-05-18 14:49 | Outpatient (BNVA) | payer MEDICARE, OTHER, SELFPAY | PROVIDERS: PCP Family Medicine; Visit Provider Family Medicine | DX: R33.9 Retention of urine, unspecified (principal) | CPT/HCPCS: 81000 ==

== ENCOUNTER → 2024-06-17 11:41 | Outpatient (BNVA) | payer MEDICARE, OTHER, SELFPAY | PROVIDERS: PCP Family Medicine; Visit Provider Family Medicine | DX: R33.9 Retention of urine, unspecified (principal) | CPT/HCPCS: 81000; 87077; 87086; 87184 ==

== ENCOUNTER → 2024-09-16 12:20 | Outpatient (BNVA) | payer MEDICARE, OTHER, SELFPAY | PROVIDERS: PCP Family Medicine; Visit Provider Family Medicine | DX: I10 Essential (primary) hypertension (principal); I50.32 Chronic diastolic (congestive) heart failure; E78.5 Hyperlipidemia, unspecified; E11.9 Type 2 diabetes mellitus without complications; E03.9 Hypothyroidism, unspecified | CPT/HCPCS: 80053; 80061; 82607; 83036; 83721; 83880; 84443; 85025; 86140 ==

== ENCOUNTER → 2025-03-22 10:18 | Outpatient (BNVA) | payer MEDICARE, OTHER, SELFPAY | PROVIDERS: PCP Family Medicine; Visit Provider Family Medicine | DX: F32.A Depression, unspecified (principal); I50.32 Chronic diastolic (congestive) heart failure; I25.119 Atherosclerotic heart disease of native coronary artery with unspecified angina pectoris; E03.9 Hypothyroidism, unspecified; E11.9 Type 2 diabetes mellitus without complications; G45.9 Transient cerebral ischemic attack, unspecified; E16.2 Hypoglycemia, unspecified; I11.0 Hypertensive heart disease with heart failure | CPT/HCPCS: 80053; 80061; 83036; 84443; 85025 ==